=== PATIENT | male | born 1940 | race Caucasian/White ===

== ENCOUNTER → 2017-07-20 07:51 | Outpatient (CLI) | payer MEDICARE, OTHER, SELFPAY ==
[2017-07-20 10:03] LABS: Thyroid Stimulating Hormone 3.92 uIU/mL (0.47-4.68)
== END ==
PROVIDERS: PCP Family Medicine; Visit Provider Family Medicine
DX: E03.9 Hypothyroidism, unspecified (principal)
CPT/HCPCS: 36415; 84443

== ENCOUNTER 2017-11-18 11:11 | Emergency (ER) | payer MEDICARE, OTHER, SELFPAY ==
[2017-11-18 11:18] VITALS: BP 140/79; PULSE 75; RESP 15; O2SAT 97
[2017-11-18 11:20] VITALS: BP 140/79; PULSE 75; RESP 15; TEMP 36.6; O2SAT 97
--- NOTE | 2017-11-18 11:27 | DI.RAD.S_ITS ---
PROCEDURE: XR CHEST 1V INDICATIONS: diaphorisis, weakness, TECHNIQUE: One view of the chest was acquired. COMPARISON: None. FINDINGS: Surgical changes and devices: None. Lungs and pleura: No pleural effusions or pneumothorax. Lungs are clear. Mediastinum: Mediastinal contours appear normal. Heart size is normal. Bones and chest wall: No suspicious bony lesions. Overlying soft tissues appear unremarkable. IMPRESSION: No acute cardiopulmonary findings. Dictated by: Marjorie Thompson M.D. on 11/18/2017 at 12:36 Approved by: Marjorie Thompson M.D. on 11/18/2017 at 12:37
[2017-11-18 11:30] LABS: Bacteria Urine None Seen; RBC Urine None Seen (0-5/HPF); WBC Urine None Seen (0-5/HPF)
[2017-11-18 11:51] LABS: Alanine Aminotransferase 166 IU/L (21-72); Albumin 3.9 g/dL (3.5-5.0); Albumin Globulin Ratio 1.4 (1.0-2.8); Alkaline Phosphatase 120 U/L (38-126); Aspartate Aminotransferase 99 IU/L (17-59); BUN Creatinine Ratio 16.7 (6-22); Bilirubin Total 0.7 mg/dL (0.2-1.3); Blood Urea Nitrogen 15 mg/dL (9-20); Calcium 9.7 mg/dL (8.4-10.2); Carbon Dioxide 28 mmol/L (22-32); Chloride 104 mmol/L (98-107); Creatine Kinase 63 U/L (55-170); Estimated Glomerular Filt Rate > 60.0 mL/min (>60); Globulin 2.7 g/dL (1.7-4.1); Glucose 99 mg/dL (80-110); HEMOLYSIS < 15 (0-50); Lipase 84 U/L (23-300); Potassium 4.2 mmol/L (3.4-5.1); Sodium 141 mmol/L (137-145); Total Protein 6.6 g/dL (6.3-8.2)
[2017-11-18 12:08] LABS: Add Manual Diff / Slide Review NO; Basophils Percent Auto 0.8 % (0-2); Eosinophils Percent Auto 6.6 % (2-4); Hematocrit 39.6 % (41-53); Hemoglobin 13.4 g/dL (13.5-17.5); Lymphocytes Percent Auto 14.2 % (25-40); Mean Corpuscular HGB Conc 33.9 % (30-36); Mean Corpuscular Hemoglobin 31.8 PG (26-34); Mean Corpuscular Volume 93.7 fL (80-100); Monocytes Percent Auto 7.6 % (3-14); Neutrophils Absolute Auto 2900 /uL (3000-5900); Neutrophils Percent Auto 70.8 % (50-75); Platelet Count 157 X10^3/uL (150-400); Red Blood Cell Count 4.23 X10^6/uL (4.5-5.9)
[2017-11-18 12:09] LABS: Troponin I < 0.012 ng/mL (0.01-0.034)
--- NOTE | 2017-11-18 12:33 | ED.MALEGU ---
HPI - Male Genitourinary <Josephine Nolasco PA-C - Last Filed: 11/18/17 20:55> General Chief complaint: Urogenital-Male Stated complaint: Blood in Urine Time Seen by Provider: 11/18/17 11:37 Source: patient Mode of arrival: ambulatory Limitations: no limitations History of Present Illness HPI Narrative: This 77-year-old male had 2 ventral hernia repairs on Monday at [facility]. He states that he has had multiple abdominal hernia repairs in the past with complications and problems with the mesh, so scar tissue was also being revised. He did well and was released home yesterday. He states that a couple of hours ago, his was feeling poorly and he helped her out of bed and to the toilet. He states that she later slumped down to the floor from the toilet and he helped lower her to the floor. He never actually lifted her, however after that he started to notice he was urinating blood, then he felt clammy, cold and sweaty. He states that he had a catheter in for a day and a half or 2 at the hospital, but no problems, has not had any hematuria, dysuria or other urinary symptoms. He states has not had any abdominal or incisional pain at all, did not notice any pain when he was lowering his to the floor, nor since. He has not had any dyspnea, chest pain, or palpitations. No pain or swelling in the extremities. He states he has been having drainage in his surgical drains that is unchanged. He has not had fever or any other new problems since coming home yesterday. He states that he felt clammy for about an hour and he feels fine now Related Data Home Medications Medication Instructions Recorded Confirmed loratadine [Claritin] 10 mg PO BID #0 12/28/10 [TURMERIC] 1 tab PO BID #0 12/03/15 cyanocobalamin (vitamin B-12) 2,500 mcg PO BID #0 12/03/15 [Vitamin B-12] glucosamine sulfate-msm 1 tab PO BID #0 12/03/15 multivitamin [Multiple Vitamins] 1 tab PO EVERY THIRD DAY #0 12/03/15 vitamin D3-folic acid [Ciferex] 2,000 u PO BID #0 12/03/15 ascorbic acid (vitamin C) 1,000 mg PO EVERY THIRD DAY #0 06/07/16 calcium polycarbophil [FiberCon] 1 tab PO BID #0 06/07/16 guaifenesin 400 mg PO BID #0 06/07/16 peg 400-propylene glycol [Systane 1 drp OPHTH BIDP PRN #0 06/07/16 (propylene glycol)] vitamin B complex-folic acid 0.4 mg PO #0 06/07/16 [Kobee] calcium carbonate 600 mg PO #0 06/28/16 loratadine 10 mg PO BID #0 03/29/17 omega 9-jek-tuy-fish oil [Fish Oil] 1,000 mg PO QDAY #0 03/29/17 [Bozwellia] 243 mg PO PO #0 06/08/17 Previous Rx's Medication Instructions Recorded clobetasol 0 % TOPICAL BID #1 tube 09/28/16 simvastatin 40 mg PO HS #90 tab 10/24/16 sildenafil (antihypertensive) 20 mg PO SEE INSTRUCTIONS #30 tab 12/16/16 fluticasone 1 spray INTRANASAL BID #16 gm 02/15/17 hydroxyzine pamoate [Vistaril] 25 mg PO Q4HP PRN #60 cap 03/30/17 oxycodone 5 mg PO Q4HP PRN #90 tab 03/30/17 finasteride 5 mg PO QDAY #90 tab 04/20/17 omeprazole 20 mg PO HS #90 cap 05/08/17 levothyroxine [Synthroid] 50 mcg PO QAM #180 tab 06/08/17 tamsulosin [Flomax] 0.4 mg PO HS #90 cap 06/08/17 tramadol-acetaminophen [Ultracet] 1 tab PO Q6HP PRN #90 tab 06/08/17 diclofenac sodium 75 mg PO BIDP PRN #180 ect 10/23/17 Allergies Allergy/AdvReac Type Severity Reaction Status Date / Time naproxen [NAPROXEN] Allergy Mild PIMPLES Verified 11/18/17 11:22 Review of Systems <Josephine Nolasco PA-C - Last Filed: 11/18/17 20:55> Review of Systems All systems reviewed & are unremarkable except as noted in HPI and below Exam <Josephine Nolasco PA-C - Last Filed: 09/01/18 20:55> Narrative Exam Narrative: GENERAL APPEARANCE: Patient sitting comfortably, in no distress. HEENT: PERRL, EOMI, no scleral icterus, normal oropharynx NECK: Supple LUNGS: Clear to auscultation bilaterally. HEART: Rate and rhythm regular with occasional skip, normal S1 and S2, no S3 or S4. ABDOMEN: Soft, nontender, nondistended, bowel sounds present x 4 quadrants, long midline surgical incision site is clean, dry, and intact. Midpoint near the umbilicus is slightly more protuberant but soft and nontender. Bilateral LASHAE drains with serosanguineous fluid. No CVAT EXTREMITIES: No edema, no cyanosis, no calf tenderness DERMATOLOGIC: No jaundice or exanthem NEUROLOGIC: Alert and oriented with normal speech and coordination Initial Vital Signs Initial Vital Signs: Vital Signs Pulse Rate 75 11/18/17 11:18 Respiratory Rate 15 11/18/17 11:18 Blood Pressure 140/79 11/18/17 11:18 Pulse Oximetry 97 11/18/17 11:18 <Aarti Caballero DO - Last Filed: 11/21/17 07:38> Initial Vital Signs Initial Vital Signs: Vital Signs Pulse Rate 75 11/18/17 11:18 Respiratory Rate 15 11/18/17 11:18 Blood Pressure 140/79 11/18/17 11:18 Pulse Oximetry 97 11/18/17 11:18 Course <Josephine Nolasco PA-C - Last Filed: 11/18/17 20:55> Additional Information: Patient reported that he was feeling normal, well at the time I saw him. He states that he never had any incisional or hernia pain after helping his . No clear acute findings on workup today. There was a small amount of subcu air or gas noted by the radiologist, not clear whether this is new or has had since earlier in the week. We did push images to [facility] and he has a copy of films on disc. He agrees to call on Monday for follow-up and promised to return in the interim if any changes or acutely worsening symptoms Orders Ordered: Discontinued Medications Sodium Chloride (Normal Saline 0.9%) 1,000 mls @ 1,000 mls/hr IV BOLUS ONE Stop: 11/18/17 13:52 Last Infusion: 11/18/17 13:53 Dose: 0 mls/hr Admin: 11/18/17 13:03 Dose: 1,000 mls/hr Vital Signs - 8 hr 11/18/17 14:10 11/18/17 14:42 Pulse Rate 67 65 Respiratory Rate 13 16 Blood Pressure 141/97 H Blood Pressure [Left Arm] 141/97 H Pulse Oximetry 99 98 <Aarti Caballero DO - Last Filed: 11/21/17 07:38> Orders Ordered: Discontinued Medications Sodium Chloride (Normal Saline 0.9%) 1,000 mls @ 1,000 mls/hr IV BOLUS ONE Stop: 11/18/17 13:52 Last Infusion: 11/18/17 13:53 Dose: 0 mls/hr Admin: 11/18/17 13:03 Dose: 1,000 mls/hr Vital Signs - 8 hr 11/18/17 14:10 11/18/17 14:42 Pulse Rate 67 65 Respiratory Rate 13 16 Blood Pressure 141/97 H Blood Pressure [Left Arm] 141/97 H Pulse Oximetry 99 98 MDM - Male Genitourinary <Josephine Nolasco PA-C - Last Filed: 11/18/17 20:55> Lab Data Result diagrams: 11/18/17 11:25 11/18/17 11:25 Lab Results 11/18/17 11/18/17 11/18/17 Range/Units 11:15 11:25 11:25 WBC 4.0 L (4.5-11.0) X10^3/uL RBC 4.23 L (4.5-5.9) X10^6/uL Hgb 13.4 L (13.5-17.5) g/dL Hct 39.6 L (41-53) % MCV 93.7 (80-100) fL MCH 31.8 (26-34) PG MCHC 33.9 (30-36) % RDW 13.0 (11.6-14.8) % Plt Count 157 (150-400) X10^3/uL Neut % (Auto) 70.8 (50-75) % Lymph % (Auto) 14.2 L (25-40) % [place] % (Auto) 7.6 (3-14) % Eos % (Auto) 6.6 H (2-4) % Baso % (Auto) 0.8 (0-2) % Neut # (Auto) 2900 L (5251-5192) /uL Sodium 141 (137-145) mmol/L Potassium 4.2 (3.4-5.1) mmol/L Chloride 104 (98-107) mmol/L Carbon Dioxide 28 (22-32) mmol/L BUN 15 (9-20) mg/dL Creatinine 0.90 (0.66-1.25) mg/dL Estimated GFR > 60.0 (>60) mL/min BUN/Creatinine Ratio 16.7 (6-22) Glucose 99 (80-110) mg/dL Calcium 9.7 (8.4-10.2) mg/dL Total Bilirubin 0.7 (0.2-1.3) mg/dL AST 99 H (17-59) IU/L ALT 166 H (21-72) IU/L Alkaline Phosphatase 120 (38-126) U/L Total Creatine Kinase 63 (55-170) U/L Troponin I < 0.012 (0.01-0.034) ng/mL Total Protein 6.6 (6.3-8.2) g/dL Albumin 3.9 (3.5-5.0) g/dL Globulin 2.7 (1.7-4.1) g/dL Albumin/Globulin Ratio 1.4 (1.0-2.8) Lipase 84 (23-300) U/L Urine Color Cancelled Urine Appearance Cancelled Urine pH Cancelled Ur Specific [place] Cancelled Urine Protein Cancelled Urine Glucose (UA) Cancelled Urine Ketones Cancelled Urine Occult Blood Cancelled Urine Nitrate Cancelled Urine Bilirubin Cancelled Urine Urobilinogen Cancelled Ur Leukocyte Esterase Cancelled Urine RBC None seen (0-5/HPF) Urine WBC None seen (0-5/HPF) Urine Bacteria None seen (None) Ur Culture Indicated? Not Reportable Micro UA Comment Not Reportable Imaging Data CT scan - abdomen: Radiologist's impression: View Report History [address] [address] [address] Scan Report Signed Patient: Johan Mcknight MR#: [id number] : 1940 Acct:[id number] Age/Sex: 77 / M Date of Service: 11/18/17 Loc: ED Accession Number: [id number] Procedure: CT abdomen pelvis w con Ordering Provider: Josephine Nolasco P.A-C PROCEDURE: CT ABDOMEN PELVIS W CON INDICATIONS: s/p abd hernia repair, diaphoresis, hematuria TECHNIQUE: After the administration of intravenous contrast, 5 mm thick sections acquired from the diaphragm to the symphysis. 5 mm coronal and sagittal reformats were acquired. For radiation dose reduction, the following was used: automated exposure control, adjustment of mA and/or kV according to patient size. COMPARISON: [facility], , CT ABDOMEN/PELVIS WITHOUT CONTRAST, 11/29/2016, 13:30. FINDINGS: Image quality: Excellent. ABDOMEN: Lung bases: Lung bases are clear. Heart size is normal. Solid organs: Liver is normal in size and enhancement. Gallbladder is unremarkable. Biliary system is non dilated. Pancreas enhances normally. Spleen is normal in size and enhancement. No adrenal nodules. Kidneys demonstrate normal size and enhancement, without hydronephrosis. Low-density cystic lesions are present bilaterally. Peritoneum and bowel: Bowel loops demonstrate normal wall thickness and caliber. Anastomotic suture is present in the sigmoid region. No free fluid or air. Nodes and vessels: No retroperitoneal or mesenteric adenopathy by size criteria. Aorta and inferior vena cava are normal in size. Miscellaneous: Trace superficial fluid is present overlying the rectus abdominis musculature at midline. There is marked anterior abdominal wall subcutaneous fat stranding. Trace foci of subcutaneous emphysema are present as well. A small fluid and gas collection is present within the anterior subcutaneous fat at midline (series 2, image 77). No bowel containing ventral hernia is noted. PELVIS: Genitourinary: Bladder wall thickness is normal. Miscellaneous: No inguinal hernias or adenopathy. Epidural nerve stimulator is noted at T9. Bones: No suspicious bony lesions. No vertebral body compression fractures. IMPRESSION: 1. No acute intra-abdominal findings. 2. Status post recent midline hernia repair. There is a small subcutaneous fluid and gas collection. Followup to resolution is recommended. Dictated by: Marjorie Thompson M.D. on 11/18/2017 at 13:37 Approved by: Marjorie Thompson M.D. on 11/18/2017 at 13:44 Chest x-ray: Radiologist's impression: [address] [address] XRay Report Signed Patient: Johan Mcknight MR#: [id number] : 1940 Acct:[id number] Age/Sex: 77 / M Date of Service: 11/18/17 Loc: ED Accession Number: [id number] Procedure: XR chest 1V Ordering Provider: Aarti Caballero D.O. PROCEDURE: XR CHEST 1V INDICATIONS: diaphorisis, weakness, TECHNIQUE: One view of the chest was acquired. COMPARISON: None. FINDINGS: Surgical changes and devices: None. Lungs and pleura: No pleural effusions or pneumothorax. Lungs are clear. Mediastinum: Mediastinal contours appear normal. Heart size is normal. Bones and chest wall: No suspicious bony lesions. Overlying soft tissues appear unremarkable. IMPRESSION: No acute cardiopulmonary findings. Dictated by: Marjorie Thompson M.D. on 11/18/2017 at 12:36 Approved by: Mrajorie Thompson M.D. on 11/18/2017 at 12:37 ECG Data Attestation: I personally reviewed and interpreted this ECG as follows: <Aarti Caballero DO - Last Filed: 11/21/17 07:38> Lab Data Lab Results 11/18/17 11/18/17 11/18/17 Range/Units 11:15 11:25 11:25 WBC 4.0 L (4.5-11.0) X10^3/uL RBC 4.23 L (4.5-5.9) X10^6/uL Hgb 13.4 L (13.5-17.5) g/dL Hct 39.6 L (41-53) % MCV 93.7 (80-100) fL MCH 31.8 (26-34) PG MCHC 33.9 (30-36) % RDW 13.0 (11.6-14.8) % Plt Count 157 (150-400) X10^3/uL Neut % (Auto) 70.8 (50-75) % Lymph % (Auto) 14.2 L (25-40) % [place] % (Auto) 7.6 (3-14) % Eos % (Auto) 6.6 H (2-4) % Baso % (Auto) 0.8 (0-2) % Neut # (Auto) 2900 L (5491-9362) /uL Sodium 141 (137-145) mmol/L Potassium 4.2 (3.4-5.1) mmol/L Chloride 104 (98-107) mmol/L Carbon Dioxide 28 (22-32) mmol/L BUN 15 (9-20) mg/dL Creatinine 0.90 (0.66-1.25) mg/dL Estimated GFR > 60.0 (>60) mL/min BUN/Creatinine Ratio 16.7 (6-22) Glucose 99 (80-110) mg/dL Calcium 9.7 (8.4-10.2) mg/dL Total Bilirubin 0.7 (0.2-1.3) mg/dL AST 99 H (17-59) IU/L ALT 166 H (21-72) IU/L Alkaline Phosphatase 120 (38-126) U/L Total Creatine Kinase 63 (55-170) U/L Troponin I < 0.012 (0.01-0.034) ng/mL Total Protein 6.6 (6.3-8.2) g/dL Albumin 3.9 (3.5-5.0) g/dL Globulin 2.7 (1.7-4.1) g/dL Albumin/Globulin Ratio 1.4 (1.0-2.8) Lipase 84 (23-300) U/L Urine Color Cancelled Urine Appearance Cancelled Urine pH Cancelled Ur Specific [place] Cancelled Urine Protein Cancelled Urine Glucose (UA) Cancelled Urine Ketones Cancelled Urine Occult Blood Cancelled Urine Nitrate Cancelled Urine Bilirubin Cancelled Urine Urobilinogen Cancelled Ur Leukocyte Esterase Cancelled Urine RBC None seen (0-5/HPF) Urine WBC None seen (0-5/HPF) Urine Bacteria None seen (None) Ur Culture Indicated? Not Reportable Micro UA Comment Not Reportable Discharge Plan Departure Patient Disposition: Home Clinical Impression: Status post hernia repair, Urine discoloration, Weakness Discharge Date/Time: 11/18/17 14:44 Interventions: ED Discharge Assessment Last Done: 11/18/17 14:42 Instructions: How to Care for a Surgical Wound Activity Restrictions/Additional Instructions: You should return as we talked about if you have any acutely worsening symptoms, or new symptoms such as fever or problems with your surgical wound. Also, there was a small amount air/gas localized under the skin on your CT scan, so this will need follow up by your surgeon to make sure it has resolved. We have sent the images to [facility], and you should call 1st thing on Monday for follow-up and also takes the disc that we gave you with you. The source of your weakness and sweating was not clear today. I suspect that the discoloration of your urine is mainly due to taking the [id number] urinary pain reliever, which can turn the urine an orange color. There were no red cells in the urine on microscopic exam Prescriptions: No Action loratadine [Claritin] 10 MG tablet 10 mg PO BID Qty: 0 RF: 0 [TURMERIC] 1 tab PO BID Qty: 0 RF: 0 cyanocobalamin (vitamin B-12) [Vitamin B-12] 50 MCG tablet 2,500 mcg PO BID Qty: 0 RF: 0 glucosamine sulfate-msm 1 EACH capsule 1 tab PO BID Qty: 0 RF: 0 multivitamin [Multiple Vitamins] 1 EACH tablet 1 tab PO EVERY THIRD DAY Qty: 0 RF: 0 vitamin D3-folic acid [Ciferex] 3,775 UNITS/1 MG capsule 2,000 u PO BID Qty: 0 RF: 0 guaifenesin 400 MG tablet 400 mg PO BID Qty: 0 RF: 0 ascorbic acid (vitamin C) 500 MG tablet 1,000 mg PO EVERY THIRD DAY Qty: 0 RF: 0 vitamin B complex-folic acid [Kobee] 0.4 MG tablet 0.4 mg PO Qty: 0 RF: 0 calcium polycarbophil [FiberCon] 625 MG tablet 1 tab PO BID Qty: 0 RF: 0 peg 400-propylene glycol [Systane (propylene glycol)] 15 ML drops 1 drp OPHTH BIDP PRNQty: 0 RF: 0 calcium carbonate 600 MG tablet 600 mg PO Qty: 0 RF: 0 clobetasol 0.05 % ointment Topical BID Qty: 1 RF: 5 simvastatin 40 MG tablet 40 mg PO HS Qty: 90 RF: 3 sildenafil (antihypertensive) 20 MG tablet 20 mg PO SEE INSTRUCTIONS Qty: 30 RF: 3 fluticasone 16 GM spray,suspension 1 spray Intranasal BID Qty: 16 RF: 3 loratadine 10 MG tablet 10 mg PO BID Qty: 0 RF: 0 omega 1-nlj-jvz-fish oil [Fish Oil] 1,000 MG capsule 1,000 mg PO QDAY Qty: 0 RF: 0 oxycodone 5 MG tablet 5 mg PO Q4HP PRNQty: 90 RF: 0 hydroxyzine pamoate [Vistaril] 25 MG capsule 25 mg PO Q4HP PRNQty: 60 RF: 1 finasteride 5 MG tablet 5 mg PO QDAY Qty: 90 RF: 5 omeprazole 20 MG capsule,delayed release(DR/EC) 20 mg PO HS Qty: 90 RF: 1 [Bozwellia] 243 mg PO PO Qty: 0 RF: 0 tramadol-acetaminophen [Ultracet] 37.5 MG/325 MG tablet 1 tab PO Q6HP PRNQty: 90 RF: 0 tamsulosin [Flomax] 0.4 MG capsule,extended release 24hr 0.4 mg PO HS Qty: 90 RF: 5 levothyroxine [Synthroid] 50 MCG tablet 50 mcg PO QAM Qty: 180 RF: 5 diclofenac sodium 75 mg tablet,delayed release (DR/EC) 75 mg PO BIDP PRNQty: 180 RF: 1 Referrals: Jarred Lamb [Other] Pasha Guzman MD [Primary Care Provider] - <Aarti Caballero DO - Last Filed: 11/21/17 07:38> Cosign ED Attending Alexature Attestation: I was immediately available in the department for consultation. Documentation has been reviewed. I agree with assessment and plan.
--- NOTE | 2017-11-18 12:53 | DI.CT.S_ITS ---
PROCEDURE: CT ABDOMEN PELVIS W CON INDICATIONS: s/p abd hernia repair, diaphoresis, hematuria TECHNIQUE: After the administration of intravenous contrast, 5 mm thick sections acquired from the diaphragm to the symphysis. 5 mm coronal and sagittal reformats were acquired. For radiation dose reduction, the following was used: automated exposure control, adjustment of mA and/or kV according to patient size. COMPARISON: [facility], , CT ABDOMEN/PELVIS WITHOUT CONTRAST, 11/29/2016, 13:30. FINDINGS: Image quality: Excellent. ABDOMEN: Lung bases: Lung bases are clear. Heart size is normal. Solid organs: Liver is normal in size and enhancement. Gallbladder is unremarkable. Biliary system is non dilated. Pancreas enhances normally. Spleen is normal in size and enhancement. No adrenal nodules. Kidneys demonstrate normal size and enhancement, without hydronephrosis. Low-density cystic lesions are present bilaterally. Peritoneum and bowel: Bowel loops demonstrate normal wall thickness and caliber. Anastomotic suture is present in the sigmoid region. No free fluid or air. Nodes and vessels: No retroperitoneal or mesenteric adenopathy by size criteria. Aorta and inferior vena cava are normal in size. Miscellaneous: Trace superficial fluid is present overlying the rectus abdominis musculature at midline. There is marked anterior abdominal wall subcutaneous fat stranding. Trace foci of subcutaneous emphysema are present as well. A small fluid and gas collection is present within the anterior subcutaneous fat at midline (series 2, image 77). No bowel containing ventral hernia is noted. PELVIS: Genitourinary: Bladder wall thickness is normal. Miscellaneous: No inguinal hernias or adenopathy. Epidural nerve stimulator is noted at T9. Bones: No suspicious bony lesions. No vertebral body compression fractures. IMPRESSION: 1. No acute intra-abdominal findings. 2. Status post recent midline hernia repair. There is a small subcutaneous fluid and gas collection. Followup to resolution is recommended. Dictated by: Marjorie Thompson M.D. on 11/18/2017 at 13:37 Approved by: Marjorie Thompson M.D. on 11/18/2017 at 13:44
[2017-11-18] MEDS: SODIUM CHLORIDE 0.9% 1,000 ML 1000 ML IV (13:03)
[2017-11-18 14:10] VITALS: BP 141/97; PULSE 67; RESP 13; O2SAT 99
[2017-11-18 14:42] VITALS: BP 141/97; PULSE 65; RESP 16; O2SAT 98
== END 2017-11-18 14:44 | disposition home or self-care (01) ==
PROVIDERS: Emergency Medicine; Emergency Provider Internal Medicine; PCP Family Medicine
DX: R39.89 Other symptoms and signs involving the genitourinary system (principal); Z98.890 Other specified postprocedural states; Z87.19 Personal history of other diseases of the digestive system; R53.1 Weakness
CPT/HCPCS: 36591; 71045; 74177; 80053; 81015; 82550; 82553; 83690; 84484; 85025; 93005; 93010; 96360; 99283; 99285; Q9967

== ENCOUNTER → 2018-03-14 14:02 | Outpatient (CLI) | payer MEDICARE, OTHER, SELFPAY ==
--- NOTE | 2018-03-14 | DI.CT.S_ITS ---
PROCEDURE: CT LUMBAR SPINE WO CON INDICATIONS: Postlaminectomy syndrome, low back pain TECHNIQUE: Noncontrast 3 mm thick sections acquired from the T12 level to the sacrum. Sagittal and coronal reformats were constructed. For radiation dose reduction, the following was used: automated exposure control. COMPARISON: [facility], CT, L-SPINE WITHOUT CONTRAST, 11/16/2015, 8:49. [facility], , CT LUMBAR SPINE, 11/29/2016, 13:30. [facility], MR, L-SPINE W&WO CONTRAST, 02/03/2016, 7:45. [facility], CR, SPINE LUMB 2 OR 3VW, 11/11/2015, 10:47. FINDINGS: Image quality: Excellent. Bones: Postsurgical changes compatible with L3-L5 posterior fusion, L3-L5 interbody fusion and L4 left facetectomy, as well as L3-L4 and L4-L5 left hemilaminectomies are stable compared to prior examinations. Orthopedic hardware is intact. Lucency adjacent to the bilateral L5 transpedicular screws is stable compared to prior examinations. There is mild L3-L4 and L4-L5 retrolisthesis which is stable compared to prior examinations. No acute vertebral body compression fractures. No suspicious lytic or blastic bony lesions. No pars defects. T12-L1: Disc height is normal. No central stenosis. No neural foraminal narrowing. No definite neural impingement. L1-L2: Disc height is normal. Vacuum disc phenomenon noted. Mild diffuse disc bulge. Mild ligamentum flavum hypertrophy. Mild narrowing of the central canal. Mild bilateral neural foraminal narrowing. No definite neural impingement. L2-L3: Loss of disc height. Vacuum disc phenomenon. Endplate osteophytosis. Mild, diffuse disc bulge. Mild bilateral facet hypertrophy. Mild ligamentum flavum hypertrophy. Moderate narrowing of the central canal. Mild to moderate right and mild left neural foraminal narrowing. No definite neural impingement. L3-L4: Status post fusion. Endplate osteophytosis. Moderate right facet hypertrophy. No central stenosis. Moderate to severe right neural foraminal narrowing with slight flattened deformity exiting right L3 nerve root. Mild narrowing of the left neural foramen without definite impingement of the exiting left L3 nerve root. L4-L5: Status post fusion. Vacuum disc phenomenon is noted with lucency noted adjacent to the intervertebral disc spacer compatible with incomplete incorporation. Moderate right facet hypertrophy. Left L4 facetectomy and left L5 superior facetectomy changes noted. Mild narrowing of the central canal. Moderate to severe right and severe left neural foraminal narrowing with slight flattened deformity exiting right L4 nerve root in mild flattened deformity exiting left L4 nerve root. L5-S1: Disc height is normal. Minimal, diffuse disc bulge. Moderate right and mild left facet hypertrophy. No central stenosis. Mild bilateral neural foraminal narrowing. No definite. Soft tissues: No retroperitoneal masses or hematomas. 2 mm nonobstructing right renal stone is stable compared to prior examinations. 1 mm nonobstructing left renal stone is stable compared to prior examinations. Left renal cyst is stable compared to prior examinations. Visualized aorta is normal in caliber. Scattered atherosclerotic calcifications noted in the abdominal aorta and the visualized pelvic vasculature. vasculature. IMPRESSION: 1. Stable postsurgical changes. 2. Lucencies adjacent to the bilateral L5 transpedicular screws are stable compared to prior examinations and likely related to hardware loosening. 3. Multilevel degenerative disc disease. 4. Multilevel facet arthropathy. 5. Grade 1 of L3-L4 and L4-L5 degenerative retrolisthesis stable compared to prior exams. 6. Moderate L2-L3 central canal narrowing. Mild L1-L2 and L4-L5 central canal narrowing. 7. Moderate to severe right and severe left L4-L5 neural foraminal narrowing. Moderate to severe right L3-L4 neural foraminal narrowing. Mild to moderate right and mild left L2-L3 neural foraminal narrowing. Mild bilateral L1-L2 and L5-S1 neural foraminal narrowing. 8. Flattened deformity of the exiting right L3 nerve root and the exiting bilateral L4 nerve roots secondary to neural foraminal narrowing. Please correlate with clinical data. Dictated by: Britt Patterson MD, PhD on 03/14/2018 at 14:21 Approved by: Britt Patterson MD, PhD on 03/14/2018 at 14:53
== END ==
PROVIDERS: PCP Family Medicine; Visit Provider Neurological Surgery
DX: M96.1 Postlaminectomy syndrome, not elsewhere classified (principal)
CPT/HCPCS: 72131

== ENCOUNTER → 2018-04-07 07:29 | Outpatient (CLI) | payer MEDICARE, OTHER, SELFPAY ==
[2018-04-07 07:49] LABS: Add Manual Diff / Slide Review NO; Basophils Absolute Auto 0 /uL (0-100); Eosinophils Absolute Auto 200 /uL (0-450); Eosinophils Percent Auto 6.5 % (2-4); Hematocrit 42.2 % (41-53); Hemoglobin 13.9 g/dL (13.5-17.5); Lymphocytes Absolute Auto 1000 /uL (1100-4500); Lymphocytes Percent Auto 27.4 % (25-40); Mean Corpuscular HGB Conc 32.9 % (30-36); Mean Corpuscular Hemoglobin 31.6 PG (26-34); Mean Corpuscular Volume 96.1 fL (80-100); Monocytes Absolute Auto 300 /uL (0-900); Monocytes Percent Auto 7.1 % (3-14); Neutrophils Absolute Auto 2200 /uL (1500-7000); Platelet Count 148 X10^3/uL (150-400); Red Blood Cell Count 4.39 X10^6/uL (4.5-5.9); Red Cell Distribution Width 13.6 % (11.6-14.8); White Blood Cell Count 3.8 X10^3/uL (4.5-11.0)
[2018-04-07 07:58] LABS: HEMOLYSIS < 15 (0-50)
[2018-04-07 08:05] LABS: Alanine Aminotransferase 42 IU/L (21-72); Albumin 4.5 g/dL (3.5-5.0); Albumin Globulin Ratio 1.7 (1.0-2.8); Alkaline Phosphatase 48 U/L (38-126); Aspartate Aminotransferase 37 IU/L (17-59); Bilirubin Total 0.6 mg/dL (0.2-1.3); Blood Urea Nitrogen 18 mg/dL (9-20); Calcium 9.6 mg/dL (8.4-10.2); Carbon Dioxide 30 mmol/L (22-32); Chloride 102 mmol/L (98-107); Cholesterol 175 mg/dL (140-199); Creatinine Urine Random 108.2 mg/dL; Estimated Glomerular Filt Rate > 60.0 mL/min (>60); Globulin 2.6 g/dL (1.7-4.1); Glucose 89 mg/dL (80-110); HDL Cholesterol 68 mg/dL (40-60); LDL Cholesterol Calculated 96 mg/dL (<100); Potassium 4.4 mmol/L (3.4-5.1); Sodium 140 mmol/L (137-145); Total Protein 7.1 g/dL (6.3-8.2); Triglycerides 55 mg/dL (35-150)
[2018-04-07 08:23] LABS: Microalbumi Creatinin Ratio Ur 5.5 ug/mg CR (<30); Microalbumin Urine Random < 0.6 mg/dL (0-1.6)
[2018-04-07 09:01] LABS: Thyroid Stimulating Hormone 3.83 uIU/mL (0.47-4.68)
[2018-04-07 11:45] LABS: Prostate Specific Antigen Scrn 0.434 ng/mL (0.1-4.0)
== END ==
PROVIDERS: PCP Family Medicine; Visit Provider Family Medicine
DX: E78.2 Mixed hyperlipidemia (principal); R89.9 Unspecified abnormal finding in specimens from other organs, systems and tissues; D64.9 Anemia, unspecified; Z12.5 Encounter for screening for malignant neoplasm of prostate; I10 Essential (primary) hypertension; E78.5 Hyperlipidemia, unspecified; E03.9 Hypothyroidism, unspecified
CPT/HCPCS: 36415; 80053; 80061; 82043; 82570; 84443; 85025; G0103

== ENCOUNTER → 2018-08-30 08:23 | Outpatient (CLI) | payer MEDICARE, OTHER, SELFPAY ==
[2018-08-30 09:10] LABS: Add Manual Diff / Slide Review NO; Basophils Absolute Auto 0 /uL (0-100); Basophils Percent Auto 0.6 % (0-2); Eosinophils Absolute Auto 100 /uL (0-450); Eosinophils Percent Auto 2.7 % (2-4); Hematocrit 40.3 % (41-53); Hemoglobin 13.7 g/dL (13.5-17.5); Lymphocytes Absolute Auto 1100 /uL (1100-4500); Lymphocytes Percent Auto 27.9 % (25-40); Mean Corpuscular HGB Conc 33.9 % (30-36); Mean Corpuscular Hemoglobin 32.5 PG (26-34); Mean Corpuscular Volume 95.8 fL (80-100); Monocytes Absolute Auto 300 /uL (0-900); Monocytes Percent Auto 7.6 % (3-14); Neutrophils Absolute Auto 2300 /uL (1500-7000); Neutrophils Percent Auto 61.2 % (50-75); Platelet Count 176 X10^3/uL (150-400); Red Blood Cell Count 4.21 X10^6/uL (4.5-5.9); Red Cell Distribution Width 13.7 % (11.6-14.8); White Blood Cell Count 3.8 X10^3/uL (4.5-11.0)
[2018-08-30 09:32] LABS: BUN Creatinine Ratio 21.1 (6-22); Blood Urea Nitrogen 19 mg/dL (9-20); Calcium 9.8 mg/dL (8.4-10.2); Carbon Dioxide 32 mmol/L (22-32); Chloride 100 mmol/L (98-107); Estimated Glomerular Filt Rate > 60.0 mL/min (>60); Glucose 85 mg/dL (80-110); HEMOLYSIS < 15 (0-50); Potassium 4.3 mmol/L (3.4-5.1); Sodium 138 mmol/L (137-145)
[2018-08-30 11:52] LABS: Vitamin B12 > 1000 pg/mL (239-931)
== END ==
PROVIDERS: PCP Family Medicine; Visit Provider Family Medicine
DX: Z01.818 Encounter for other preprocedural examination (principal); Z13.21 Encounter for screening for nutritional disorder; Z79.899 Other long term (current) drug therapy
CPT/HCPCS: 36415; 80048; 82607; 83735; 85025

== ENCOUNTER → 2018-09-03 14:41 | Outpatient (CLI) | payer MEDICARE, OTHER, SELFPAY | PROVIDERS: PCP Family Medicine; Visit Provider Family Medicine | DX: Z01.812 Encounter for preprocedural laboratory examination (principal); M54.5 Low back pain | CPT/HCPCS: 87797 ==

== ENCOUNTER → 2018-09-03 15:21 | Outpatient (CLI) | payer MEDICARE, OTHER, SELFPAY ==
[2018-09-03 15:30] LABS: Bacteria Urine None Seen; WBC Urine None Seen (0-5/HPF)
[2018-09-03 16:17] LABS: Appearance Urine UA CLEAR; Bilirubin Urine UA NEGATIVE (NEGATIVE); Color Urine UA YELLOW; Glucose Urine UA NEGATIVE (Negative); Ketones Urine UA NEGATIVE (NEGATIVE); Leukocyte Esterase Urine UA NEGATIVE (NEGATIVE); Nitrite Urine UA NEGATIVE (Negative); Occult Blood Urine UA NEGATIVE (Negative); Protein Urine UA NEGATIVE (Negative); Urobilinogen Urine UA 0.2 E.U./dL (0.2)
[2018-09-03 16:25] LABS: Culture Indicated Urine Cult Not Indicated; RBC Urine 0-1/HPF (0-5/HPF)
[2018-09-03 16:43] LABS: Prothrombin Time 11.3 SECONDS (10.1-12.7)
[2018-09-03 16:46] LABS: PTT Partial Thromboplastin Tim 31 SECONDS (26.4-36.2)
== END ==
PROVIDERS: PCP Family Medicine; Visit Provider Family Medicine
DX: M54.5 Low back pain (principal); Z01.812 Encounter for preprocedural laboratory examination; R79.1 Abnormal coagulation profile; M54.9 Dorsalgia, unspecified
CPT/HCPCS: 36415; 81001; 85610; 85730; 87086; 87797

== ENCOUNTER → 2018-09-14 13:37 | Outpatient (CLI) | payer MEDICARE, OTHER, SELFPAY ==
--- NOTE | 2018-09-14 | DI.CT.S_ITS ---
PROCEDURE: CT LUMBAR SPINE WO CON INDICATIONS: Scoliosis, unspecified TECHNIQUE: Noncontrast 3 mm thick sections acquired from the T12 level to the sacrum. Sagittal and coronal reformats were constructed. For radiation dose reduction, the following was used: automated exposure control. COMPARISON: [facility] [place], CR, XR LUMBAR SPINE WITH OLBIQUES PLUS FLEXION EXTENSION, 08/07/2018, 9:46. [facility], CT, CT LUMBAR SPINE WO CON, 03/14/2018, 14:02. [facility], CT, L-SPINE WITHOUT CONTRAST, 11/16/2015, 8:49. FINDINGS: Image quality: Excellent. Bones: There is mildly kyphotic bony alignment centered at L2, stable. No acute vertebral body compression fractures. No suspicious lytic or blastic bony lesions. There has been no interval worsening of the lucency along the transverse pedicle screws at L5, in this patient who has undergone L3-L5 transverse pedicle screw placement and vertical fixation rods posteriorly with interbody disc prosthesis at L34 and L4-5. Central spinal caliber is of mildly reduced overall caliber, stable over time. No pars defects. T12-L1: Normal except for slight disc height reduction. L1-L2: Mild degenerative disc disease, mild disc height reduction. There is a slight posterior disc bulge, moderate bilateral facet osteoarthritis and mild concentric spinal and foraminal stenosis. L2-L3: Moderate degenerative disc disease and disc height reduction, facet osteoarthritis is moderate. Ligamentum flavum hypertrophy is mild. There is concentric moderate spinal and foraminal stenosis. This is stable over time. L3-L4: Moderate degenerative disc disease, slight retrolisthesis of L3 on L4. Facet osteoarthritis is moderate, and greater on the right than the left with secondary mild to moderate right foraminal stenosis and potential for impingement on the right L3 nerve root. L4-L5: Moderately severe degenerative disc disease, slight grade 1 retrolisthesis of L4 on L5. Facet hyperostosis is again seen to be greater on the right than the left leading to moderately severe right and mild to moderate left foraminal stenosis. Left laminotomy again noted. L5-S1: Mild to moderate degenerative disc disease, facet osteoarthritis is moderately severe and greater on the left than the right with moderately severe left foraminal stenosis and mild to moderate right foraminal stenosis, equivalent to that previously present. Soft tissues: No retroperitoneal masses or hematomas. Visualized aorta is normal in caliber. IMPRESSION: 1. Postsurgical changes are stable over time from the most recent comparison study from 03/14/18 with both degenerative disc disease and facet osteoarthritis leading to both symmetric and asymmetric foraminal stenosis as discussed in detail by level in the body of the report above. 2. There is no identified disc herniation found. Minimal subluxation is present with retrolisthesis of L3 on L4 and L4 and L5 stable over time from chronic ligamentous laxity. 3. The postsurgical changes from L3-L5 include lucencies along the transverse pedicle screws bilaterally at L5, but this has not worsened it is not associated with evidence of subluxation. This presumably indicates some degree of mobility along the lower lumbosacral spine between L4-5. Dictated by: Ramin Alejandre M.D. on 09/14/2018 at 15:52 Approved by: Ramin Alejandre M.D. on 09/14/2018 at 16:09
--- NOTE | 2018-09-14 13:51 | DI.CT.S_ITS ---
PROCEDURE: CT THORACIC SPINE WO CON INDICATIONS: Scoliosis, unspecified TECHNIQUE: Noncontrast 3 mm thick sections acquired through the region of interest in the thoracic spine. Sagittal and coronal reformats were then constructed. For radiation dose reduction, the following was used: automated exposure control. COMPARISON: [facility], CT, CT LUMBAR SPINE WO CON, 09/14/2018, 13:41. FINDINGS: Image quality: Excellent. Bones: There is normal overall bony alignment except for a slight degree of convex rightward scoliosis centered at the middle third of the thoracic spine. No acute vertebral body compression fractures. No suspicious sclerotic or lytic bony lesions. Central spinal canal is of normal overall caliber. Note is made of a spinal stimulator electrode lead and plate at the dorsal margin of the epidural space T7-T8 axial level. Soft tissues: No paravertebral masses or hematomas. Visualized posteromedial lungs appear clear. IMPRESSION: Mild degenerative disc disease, mild facet osteoarthritis along the thoracic spine. Note is made of a dorsal spinal electrode lead and plate in normal position at the T7-T8 axial level. At the low cervical spine best seen at C5-6 and especially C6-7 is moderate to moderately severe degenerative disc disease. No compression fracture seen. Dictated by: Ramin Alejandre M.D. on 09/14/2018 at 14:09 Approved by: Ramin Alejandre M.D. on 09/14/2018 at 14:50
== END ==
PROVIDERS: PCP Family Medicine; Visit Provider Student in an Organized Health Care Education/Training Program
DX: M41.9 Scoliosis, unspecified (principal); M51.34 Other intervertebral disc degeneration, thoracic region; M50.322 Other cervical disc degeneration at C5-C6 level; M50.323 Other cervical disc degeneration at C6-C7 level; M47.814 Spondylosis without myelopathy or radiculopathy, thoracic region; M51.36 Other intervertebral disc degeneration, lumbar region; M51.37 Other intervertebral disc degeneration, lumbosacral region; M48.061 Spinal stenosis, lumbar region without neurogenic claudication; M48.07 Spinal stenosis, lumbosacral region; Z98.1 Arthrodesis status
CPT/HCPCS: 72128; 72131

== ENCOUNTER → 2019-02-28 12:25 | Outpatient (CLI) | payer MEDICARE, OTHER, SELFPAY ==
[2019-02-28 12:49] LABS: Add Manual Diff / Slide Review NO; Basophils Absolute Auto 0 /uL (0-100); Basophils Percent Auto 0.9 % (0-2); Eosinophils Absolute Auto 300 /uL (0-450); Eosinophils Percent Auto 5.3 % (2-4); Hematocrit 40.1 % (41-53); Hemoglobin 13.7 g/dL (13.5-17.5); Lymphocytes Absolute Auto 1200 /uL (1100-4500); Lymphocytes Percent Auto 23.3 % (25-40); Mean Corpuscular HGB Conc 34.1 % (30-36); Mean Corpuscular Hemoglobin 30.1 PG (26-34); Mean Corpuscular Volume 88.1 fL (80-100); Monocytes Absolute Auto 300 /uL (0-900); Monocytes Percent Auto 6.4 % (3-14); Neutrophils Absolute Auto 3300 /uL (1500-7000); Neutrophils Percent Auto 64.1 % (50-75); Platelet Count 158 X10^3/uL (150-400); Red Blood Cell Count 4.56 X10^6/uL (4.5-5.9); Red Cell Distribution Width 15.5 % (11.6-14.8); White Blood Cell Count 5.1 X10^3/uL (4.5-11.0)
[2019-02-28 13:29] LABS: Alanine Aminotransferase 31 IU/L (<50); Albumin 4.4 g/dL (3.5-5.0); Albumin Globulin Ratio 1.9 (1.0-2.8); Alkaline Phosphatase 101 U/L (38-126); Aspartate Aminotransferase 36 IU/L (17-59); BUN Creatinine Ratio 26.3 (6-22); Bilirubin Total 0.8 mg/dL (0.2-1.3); Blood Urea Nitrogen 21 mg/dL (9-20); Calcium 9.7 mg/dL (8.4-10.2); Carbon Dioxide 28 mmol/L (22-32); Chloride 101 mmol/L (98-107); Estimated Glomerular Filt Rate > 60.0 mL/min (>60); Globulin 2.3 g/dL (1.7-4.1); Glucose 88 mg/dL (80-110); HEMOLYSIS < 15 (0-50); Potassium 4.8 mmol/L (3.4-5.1); Sodium 138 mmol/L (137-145); Total Protein 6.7 g/dL (6.3-8.2)
== END ==
PROVIDERS: PCP Family Medicine; Visit Provider Family Medicine
DX: R60.9 Edema, unspecified (principal)
CPT/HCPCS: 36415; 80053; 85025

== ENCOUNTER → 2019-04-04 09:37 | Outpatient (CLI) | payer MEDICARE, OTHER, SELFPAY ==
--- NOTE | 2019-04-04 | DI.CT.S_ITS ---
PROCEDURE: CT THORACIC SPINE WO CON INDICATIONS: check hardware fusion, back pain TECHNIQUE: Noncontrast 3 mm thick sections acquired through the region of interest in the thoracic spine. Sagittal and coronal reformats were then constructed. For radiation dose reduction, the following was used: automated exposure control. COMPARISON: [facility], CT, CT LUMBAR SPINE WO CON, 04/04/2019, 9:41. [facility], CT, CT LUMBAR SPINE WO CON, 09/14/2018, 13:41. [facility], CT, CT THORACIC SPINE WO CON, 09/14/2018, 13:41. FINDINGS: Image quality: There is streak artifact associated with the metallic hardware. Bones: There is normal overall bony alignment. No acute vertebral body compression fractures. Mild superior compression deformities can be seen at T11 and T12. No suspicious sclerotic or lytic bony lesions. Central spinal canal is of normal overall caliber. Extensive postoperative hardware is seen, with Leiva matteo seen at the T4 level. Numerous pedicle screws are seen. The hardware continues through the sacrum. There is lucency seen adjacent to the screws on both sides at the T5 and T6 levels. The screws at several levels are superiorly located. The screw on the right at the T6-T7 level is seen within the disc space. A spinal stimulator is seen, with the leads at the T7-T8 level. Degenerative changes are seen throughout, including the visualized lower cervical spine. Soft tissues: No paravertebral masses or hematomas. Visualized posteromedial lungs appear clear. Coronary artery calcifications are seen. There is a 2 mm nonobstructing stone seen within the right kidney, as on series 3 image 107. There is a simple appearing water density left renal cyst that measures up to 2.7 cm. IMPRESSION: Extensive postoperative hardware is seen. Lucency is seen adjacent to the T5 and T6 screws, which is consistent with loosening. A spinal stimulator is seen. Mild T11 and T12 superior endplate compression deformities. Cervical spine degenerative changes are seen, including involving the visualized cervical spine. Dictated by: Ru Suarez M.D. on 04/04/2019 at 10:45 Approved by: Ru Suarez M.D. on 04/04/2019 at 10:52
--- NOTE | 2019-04-04 | DI.CT.S_ITS ---
PROCEDURE: CT LUMBAR SPINE WO CON INDICATIONS: check hardware fusion, back pain TECHNIQUE: Noncontrast 3 mm thick sections acquired from the T12 level to the sacrum. Sagittal and coronal reformats were constructed. For radiation dose reduction, the following was used: automated exposure control. COMPARISON: [facility], MR, L-SPINE W&WO CONTRAST, 02/03/2016, 7:45. [facility], CT, CT THORACIC SPINE WO CON, 09/14/2018, 13:41. [facility], CT, CT THORACIC SPINE WO CON, 04/04/2019, 9:41. [facility], CT, CT LUMBAR SPINE WO CON, 09/14/2018, 13:41. FINDINGS: Image quality: Excellent. Bones: There are extensive surgical changes as spinal fusion from T3 to S1. There is grade 1 and retrolisthesis of L3 on L4. No acute vertebral body compression fractures. There is discectomy and disc prosthesis at L3-L4 and L4-L5. The right L5 pedicular screw appears to deviate laterally from the previous tract and traverse through the anterior cortex concerning for loosening. There is lucency along the left pedicular screw of L5, concerning for loosening. There is also subtle lucency in the anterior aspect of the left L4 pedicular screw in the anterior aspect of the right L3 pedicular screw. S1 pedicle screw also traverses through the anterior cortex. There are 2 screws traversing the right iliac bone and a single screw traversing the left iliac bone. The more inferior screw on the right side appears to be through the lateral cortex of the right right iliac bone. There is lucency around upper thoracic screws of T5, T6, and T8. The right T7 pedicle screw traverses the superior endplate of T7 and appears within the intervertebral disc space. Soft tissues: No retroperitoneal masses or hematomas. Visualized aorta is normal in caliber. IMPRESSION: 1. Extensive postsurgical changes in thoracic and lumbar spine with fusion from T3 to S1. 2. The right L5 pedicular screw appears to deviate laterally from the previous tract and traverse through the anterior cortex, concerning for loosening. 3. Lucency along the left pedicular screw of L5, concerning for loosening. 4. Subtle lucency in the anterior aspect of the left L4 pedicular screw in the anterior aspect of the right L3 pedicular screw, which would represent early loosening. 5. Lucencies around upper thoracic screws of T5, T6, T8, concerning for hardware failure. The right T7 pedicle screw traverses suited superior endplate of T7 within the intervertebral disc space. Please see the separate CT thoracic spine report. Dictated by: Jyoti Lou M.D. on 04/04/2019 at 11:13 Approved by: Jyoti Lou M.D. on 04/04/2019 at 12:03
== END ==
PROVIDERS: PCP Family Medicine; Visit Provider Psychiatry & Neurology Neurology
DX: M54.6 Pain in thoracic spine (principal); M54.5 Low back pain; I25.10 Atherosclerotic heart disease of native coronary artery without angina pectoris; N20.0 Calculus of kidney; N28.1 Cyst of kidney, acquired; Z98.1 Arthrodesis status; Z96.82 Presence of neurostimulator
CPT/HCPCS: 72128; 72131

== ENCOUNTER → 2019-07-19 07:48 | Outpatient (CLI) | payer MEDICARE, OTHER, SELFPAY ==
[2019-07-19 08:45] LABS: Cholesterol 162 mg/dL (140-199); HDL Cholesterol 41 mg/dL (40-60); LDL Cholesterol Calculated 96 mg/dL (<100); Triglycerides 123 mg/dL (35-150)
[2019-07-19 09:27] LABS: TSH w/ Reflex to FT4 3.38 uIU/mL (0.47-4.68)
== END ==
PROVIDERS: PCP Family Medicine; Referring Provider Family Medicine; Visit Provider Family Medicine
DX: Z12.5 Encounter for screening for malignant neoplasm of prostate (principal); E05.90 Thyrotoxicosis, unspecified without thyrotoxic crisis or storm; E78.2 Mixed hyperlipidemia
CPT/HCPCS: 36415; 80061; 84443; G0103

== ENCOUNTER → 2019-08-13 11:24 | Outpatient (CLI) | payer MEDICARE, OTHER, SELFPAY ==
[2019-08-13 15:44] LABS: Luteinizing Hormone 1.36 mIU/mL
[2019-08-14 19:11] LABS: Tissue Transglutaminase IgA <2 U/mL (0-3)
[2019-08-16 05:40] LABS: Percent Free Testosterone 1.53 % (1.50-4.20); Testosterone Total 281.1 ng/dL (264.0-916.0)
== END ==
PROVIDERS: PCP Family Medicine; Referring Provider Internal Medicine Endocrinology, Diabetes & Metabolism; Visit Provider Internal Medicine Endocrinology, Diabetes & Metabolism
DX: M81.0 Age-related osteoporosis without current pathological fracture (principal)
CPT/HCPCS: 36415; 83002; 83516; 84402; 84403

== ENCOUNTER → 2019-08-15 10:01 | Outpatient (CLI) | payer MEDICARE, OTHER, SELFPAY ==
[2019-08-15 16:43] LABS: Calcium 24 Hour Urine 115 mg/day (100-300); Calcium Urine Random 3.7 mg/dL; Collection Time Urine 24 Hours; Total Volume Urine 3100 mL
[2019-08-15 16:49] LABS: Collection Time Urine 24 Hours; Creatinine 24 Hour Urine 2083 mg/day (1000-2000); Creatinine Urine Random 67.2 mg/dL; Total Volume Urine 3100 mL
== END ==
PROVIDERS: PCP Family Medicine; Referring Provider Internal Medicine Endocrinology, Diabetes & Metabolism; Visit Provider Internal Medicine Endocrinology, Diabetes & Metabolism
DX: M81.0 Age-related osteoporosis without current pathological fracture (principal)
CPT/HCPCS: 82340; 82570

== ENCOUNTER → 2019-09-02 08:29 | Outpatient (CLI) | payer MEDICARE, OTHER, SELFPAY ==
[2019-09-02 08:44] LABS: Bacteria Urine None Seen; RBC Urine None Seen (0-5/HPF); WBC Urine None Seen (0-5/HPF)
[2019-09-02 09:53] LABS: Add Manual Diff / Slide Review NO; Basophils Absolute Auto 0 /uL (0-100); Basophils Percent Auto 0.8 % (0-2); Eosinophils Absolute Auto 300 /uL (0-450); Eosinophils Percent Auto 7.3 % (2-4); Hematocrit 39.8 % (41-53); Hemoglobin 13.4 g/dL (13.5-17.5); Lymphocytes Absolute Auto 1100 /uL (1100-4500); Mean Corpuscular HGB Conc 33.7 % (30-36); Mean Corpuscular Volume 94.8 fL (80-100); Monocytes Absolute Auto 400 /uL (0-900); Monocytes Percent Auto 8.5 % (3-14); Neutrophils Absolute Auto 2500 /uL (1500-7000); Neutrophils Percent Auto 57.4 % (50-75); Platelet Count 155 X10^3/uL (150-400); White Blood Cell Count 4.3 X10^3/uL (4.5-11.0)
[2019-09-02 09:55] LABS: Prothrombin Time 11.6 SECONDS (10.1-12.7)
[2019-09-02 10:41] LABS: BUN Creatinine Ratio 27.6 (6-22); Blood Urea Nitrogen 21 mg/dL (9-20); Calcium 9.3 mg/dL (8.4-10.2); Carbon Dioxide 30 mmol/L (22-32); Chloride 102 mmol/L (98-107); Estimated Glomerular Filt Rate > 60.0 mL/min (>60); Glucose 89 mg/dL (80-110); HEMOLYSIS < 15 (0-50); Potassium 4.8 mmol/L (3.4-5.1); Sodium 137 mmol/L (137-145)
[2019-09-02 12:15] LABS: Culture Indicated Urine Cult Not Indicated; Urine Comments Microscopic Normal
== END ==
PROVIDERS: PCP Family Medicine; Referring Provider Family Medicine; Visit Provider Family Medicine
DX: Z01.810 Encounter for preprocedural cardiovascular examination (principal); Z01.812 Encounter for preprocedural laboratory examination
CPT/HCPCS: 36415; 80048; 81015; 85025; 85610; 93005

== ENCOUNTER → 2019-09-04 11:19 | Outpatient (CLI) | payer MEDICARE, OTHER, SELFPAY | PROVIDERS: PCP Family Medicine; Visit Provider Family Medicine | DX: M43.26 Fusion of spine, lumbar region (principal) | CPT/HCPCS: 87797 ==

== ENCOUNTER → 2019-10-16 09:27 | Outpatient (CLI) | payer MEDICARE, OTHER, SELFPAY ==
--- NOTE | 2019-10-16 | DI.RAD.S_ITS ---
PROCEDURE: XR T AND L SPINE 2 TO 3 VIEWS INDICATIONS: History of falling TECHNIQUE: 2 views acquired of the thoracolumbar spine. COMPARISON: [facility], CT, CT THORACIC SPINE WO CON, 04/04/2019, 9:41. [facility], CT, CT LUMBAR SPINE WO CON, 09/14/2018, 13:41. FINDINGS: Bones: No acute fractures or dislocations. Visualized inferior ribs appear intact. No suspicious bony lesions. Extensive prior spine fusion surgery with multiple varying term rods extending from the high thoracic region into the pelvis. Soft tissues: No suspicious soft tissue calcifications. IVC filter in apparent normal positioning. IMPRESSION: No trauma found. IVC filter in normal position. Spinal canal nerve stimulator electrode in leads appear normal. Dictated by: Ramin Alejandre M.D. on 10/16/2019 at 12:36 Approved by: Ramin Alejandre M.D. on 10/16/2019 at 12:38
== END ==
PROVIDERS: PCP Family Medicine; Referring Provider Orthopaedic Surgery; Visit Provider Orthopaedic Surgery
DX: Z45.49 Encounter for adjustment and management of other implanted nervous system device (principal); Z91.81 History of falling; Z98.1 Arthrodesis status; Z96.82 Presence of neurostimulator
CPT/HCPCS: 72082

== ENCOUNTER → 2020-05-20 11:46 | Outpatient (CLI) | payer MEDICARE, OTHER, SELFPAY ==
[2020-05-20 12:36] LABS: Add Manual Diff / Slide Review NO; Basophils Absolute Auto 0 /uL (0-100); Basophils Percent Auto 0.8 % (0-2); Eosinophils Absolute Auto 300 /uL (0-450); Eosinophils Percent Auto 6.6 % (2-4); Hematocrit 40.3 % (41-53); Hemoglobin 13.6 g/dL (13.5-17.5); Lymphocytes Absolute Auto 1100 /uL (1100-4500); Lymphocytes Percent Auto 20.7 % (25-40); Mean Corpuscular HGB Conc 33.7 % (30-36); Mean Corpuscular Hemoglobin 31.9 PG (26-34); Mean Corpuscular Volume 94.6 fL (80-100); Monocytes Absolute Auto 400 /uL (0-900); Monocytes Percent Auto 7.6 % (3-14); Neutrophils Absolute Auto 3300 /uL (1500-7000); Neutrophils Percent Auto 64.3 % (50-75); Platelet Count 171 X10^3/uL (150-400); Red Blood Cell Count 4.26 X10^6/uL (4.5-5.9); Red Cell Distribution Width 14.5 % (11.6-14.8); White Blood Cell Count 5.1 X10^3/uL (4.5-11.0)
[2020-05-20 12:47] LABS: Alanine Aminotransferase 32 IU/L (<50); Albumin 4.6 g/dL (3.5-5.0); Albumin Globulin Ratio 1.9 (1.0-2.8); Alkaline Phosphatase 77 U/L (38-126); Aspartate Aminotransferase 34 IU/L (17-59); BUN Creatinine Ratio 23.6 (6-22); Bilirubin Total 0.4 mg/dL (0.2-1.3); Blood Urea Nitrogen 21 mg/dL (9-20); Calcium 9.8 mg/dL (8.4-10.2); Carbon Dioxide 30 mmol/L (22-32); Chloride 100 mmol/L (98-107); Cholesterol 183 mg/dL (140-199); Estimated Glomerular Filt Rate > 60.0 mL/min (>60); Globulin 2.4 g/dL (1.7-4.1); Glucose 88 mg/dL (80-110); HDL Cholesterol 60 mg/dL (40-60); HEMOLYSIS < 15 (0-50); LDL Cholesterol Calculated 100 mg/dL (<100); Sodium 136 mmol/L (137-145); Triglycerides 116 mg/dL (35-150); Uric Acid 5.8 mg/dL (3.5-8.5)
[2020-05-20 13:16] LABS: Prostate Specific Antigen Scrn 1.05 ng/mL (0.1-4.0)
[2020-05-20 13:17] LABS: Free T4, Direct Thyroxine 1.37 ng/dL (0.78-2.19)
[2020-05-20 13:31] LABS: Thyroid Stimulating Hormone 3.79 uIU/mL (0.47-4.68)
== END ==
PROVIDERS: PCP Family Medicine; Referring Provider Family Medicine; Visit Provider Family Medicine
DX: E03.9 Hypothyroidism, unspecified (principal); E78.2 Mixed hyperlipidemia; Z12.5 Encounter for screening for malignant neoplasm of prostate; M25.552 Pain in left hip; N40.0 Benign prostatic hyperplasia without lower urinary tract symptoms; E55.9 Vitamin D deficiency, unspecified
CPT/HCPCS: 36415; 80053; 80061; 82306; 84439; 84443; 84550; 85025; G0103

== ENCOUNTER → 2021-05-10 09:53 | Outpatient (CLI) | payer MEDICARE, OTHER, SELFPAY ==
[2021-05-10 10:41] LABS: Add Manual Diff / Slide Review NO; Basophils Absolute Auto 0 /uL (0-100); Basophils Percent Auto 0.7 % (0-2); Eosinophils Absolute Auto 200 /uL (0-450); Eosinophils Percent Auto 5.6 % (2-4); Hematocrit 41.6 % (41-53); Hemoglobin 13.7 g/dL (13.5-17.5); Lymphocytes Absolute Auto 1000 /uL (1100-4500); Lymphocytes Percent Auto 23.5 % (25-40); Mean Corpuscular HGB Conc 33.1 % (30-36); Mean Corpuscular Hemoglobin 31.4 PG (26-34); Mean Corpuscular Volume 94.8 fL (80-100); Monocytes Absolute Auto 300 /uL (0-900); Monocytes Percent Auto 7.6 % (3-14); Neutrophils Absolute Auto 2500 /uL (1500-7000); Neutrophils Percent Auto 62.6 % (50-75); Platelet Count 152 X10^3/uL (150-400); Red Blood Cell Count 4.38 X10^6/uL (4.5-5.9); Red Cell Distribution Width 13.6 % (11.6-14.8); White Blood Cell Count 4.1 X10^3/uL (4.5-11.0)
[2021-05-10 11:00] LABS: HEMOLYSIS < 15 (0-50); Iron 82 ug/dL (49-181)
[2021-05-10 11:02] LABS: Alanine Aminotransferase 38 IU/L (<50); Albumin 4.6 g/dL (3.5-5.0); Albumin Globulin Ratio 1.9 (1.0-2.8); Alkaline Phosphatase 67 U/L (38-126); Aspartate Aminotransferase 41 IU/L (17-59); BUN Creatinine Ratio 23.7 (6-22); Bilirubin Total 0.6 mg/dL (0.2-1.3); Blood Urea Nitrogen 22 mg/dL (9-20); Calcium 9.7 mg/dL (8.4-10.2); Carbon Dioxide 31 mmol/L (22-32); Chloride 103 mmol/L (98-107); Estimated Glomerular Filt Rate > 60.0 mL/min (>60); Globulin 2.4 g/dL (1.7-4.1); Glucose 98 mg/dL (80-110); HEMOLYSIS < 15 (0-50); Potassium 5.1 mmol/L (3.4-5.1); Sodium 138 mmol/L (137-145)
[2021-05-10 11:12] LABS: Percent Iron Saturation 37 % (20-50); Total Iron Binding Capacity 221 ug/dL (261-462); Transferrin 196 mg/dL (206-381)
[2021-05-10 11:16] LABS: Free T4, Direct Thyroxine 1.51 ng/dL (0.78-2.19)
[2021-05-10 11:30] LABS: Thyroid Stimulating Hormone 3.24 uIU/mL (0.47-4.68)
[2021-05-10 11:34] LABS: Prostate Specific Antigen Scrn 1.16 ng/mL (0.1-4.0)
[2021-05-10 11:53] LABS: Vitamin B12 > 1000 pg/mL (239-931)
[2021-05-10 16:59] LABS: Vitamin D 25 Hydroxy (D3) 46.2 ng/mL (30.0-100.0)
[2021-05-13 21:10] LABS: Estrogen 97 pg/mL (56-213)
== END ==
PROVIDERS: PCP Family Medicine; Referring Provider Family Medicine; Visit Provider Family Medicine
DX: E03.9 Hypothyroidism, unspecified (principal); E78.2 Mixed hyperlipidemia; E55.9 Vitamin D deficiency, unspecified; G89.29 Other chronic pain; N40.0 Benign prostatic hyperplasia without lower urinary tract symptoms; M81.0 Age-related osteoporosis without current pathological fracture; Z12.5 Encounter for screening for malignant neoplasm of prostate
CPT/HCPCS: 36415; 80053; 82306; 82607; 82672; 83540; 83550; 84439; 84443; 85025; G0103

== ENCOUNTER → 2022-05-04 10:55 | Outpatient (CLI) | payer MEDICARE, OTHER, SELFPAY ==
[2022-05-04 12:25] LABS: Add Manual Diff / Slide Review NO; Basophils Absolute Auto 0 /uL (0-100); Basophils Percent Auto 0.7 % (0-2); Eosinophils Absolute Auto 300 /uL (0-450); Eosinophils Percent Auto 6.3 % (2-4); Hematocrit 39.9 % (41-53); Hemoglobin 13.5 g/dL (13.5-17.5); Lymphocytes Absolute Auto 1300 /uL (1100-4500); Mean Corpuscular HGB Conc 33.8 % (30-36); Mean Corpuscular Hemoglobin 31.7 PG (26-34); Mean Corpuscular Volume 93.7 fL (80-100); Monocytes Absolute Auto 400 /uL (0-900); Monocytes Percent Auto 7.6 % (3-14); Neutrophils Absolute Auto 2800 /uL (1500-7000); Neutrophils Percent Auto 58.4 % (50-75); Platelet Count 150 X10^3/uL (150-400); Red Blood Cell Count 4.25 X10^6/uL (4.5-5.9); Red Cell Distribution Width 13.7 % (11.6-14.8); White Blood Cell Count 4.8 X10^3/uL (4.5-11.0)
[2022-05-04 12:40] LABS: Alanine Aminotransferase 55 IU/L (<50); Albumin 4.4 g/dL (3.5-5.0); Albumin Globulin Ratio 1.8 (1.0-2.8); Alkaline Phosphatase 59 U/L (38-126); Aspartate Aminotransferase 45 IU/L (17-59); BUN Creatinine Ratio 23.1 (6-22); Bilirubin Total 0.7 mg/dL (0.2-1.3); Blood Urea Nitrogen 24 mg/dL (9-20); Calcium 9.1 mg/dL (8.4-10.2); Carbon Dioxide 29 mmol/L (22-32); Chloride 101 mmol/L (98-107); Estimated Glomerular Filt Rate > 60 mL/min (>60); Globulin 2.4 g/dL (1.7-4.1); Glucose 75 mg/dL (80-110); HEMOLYSIS < 15 (0-50); Potassium 4.9 mmol/L (3.4-5.1); Sodium 138 mmol/L (137-145); Total Protein 6.8 g/dL (6.3-8.2)
[2022-05-04 13:15] LABS: Free T4, Direct Thyroxine 1.42 ng/dL (0.78-2.19)
[2022-05-04 13:29] LABS: Thyroid Stimulating Hormone 2.81 uIU/mL (0.47-4.68)
== END ==
PROVIDERS: PCP Family Medicine; Referring Provider Family Medicine; Visit Provider Family Medicine
DX: E78.2 Mixed hyperlipidemia (principal); G89.29 Other chronic pain; M81.0 Age-related osteoporosis without current pathological fracture; N40.0 Benign prostatic hyperplasia without lower urinary tract symptoms; M54.50 Low back pain, unspecified
CPT/HCPCS: 36415; 80053; 84439; 84443; 85025

== ENCOUNTER → 2022-07-26 07:59 | Outpatient (CLI) | payer MEDICARE, OTHER, SELFPAY ==
--- NOTE | 2022-07-26 08:21 | DI.DEXA.S_ITS ---
[place] +---------+ Hospital +---------+ : : [address] : : : : [id number] : : : : Phone: [phone]---------+ Echocardiogram Report + + :Name: ERIC FRANCIS Study Date: 07/26/2022 Height: 74 in : :[facility] ReadingLocation: Weight: 250 lb : : Gender: Male BSA: 2.4 m2 : :: 1940 Age: 82 yrs BP: 129/82 mmHg: :Reason For Study: HEART MURMUR : :Ordering Physician: JUDY, : :ANDRES Walker D.O Performed By: Jessica Rhodes : :Referring: JD KIM D.O : + + Interpretation Summary The ejection fraction is estimated to be 50-55%. Diastolic function could not be accurately assessed due to contradictory data. The left atrium is moderately dilated. The right ventricle is normal in size and function. There is moderate aortic valve sclerosis. There is mild tricuspid regurgitation. The right ventricular systolic pressure is estimated to be at least 28 mmHg based on an estimated right atrial pressure of 8 mm Hg. Procedure: A two-dimensional transthoracic echocardiogram with color flow and Doppler was performed. The study quality was technically adequate. There is no prior echocardiogram noted for this patient. The patient was in sinus bradycardia with heart rates between 55-60 bpm during the exam. Left Ventricle: Proximal septal thickening is noted. The left ventricle is normal in size. The ejection fraction is estimated to be 50-55%. Diastolic function could not be accurately assessed due to contradictory data. Right Ventricle: The right ventricle is normal in size and function. Atria: The left atrium is moderately dilated. Right atrial size is normal. There is no Doppler evidence for an interatrial shunt. Mitral Valve: The mitral valve leaflets are mildly calcified. There is mild mitral annular calcification. There is trace mitral regurgitation. Aortic Valve: The aortic valve is moderately calcified. There is moderate aortic valve sclerosis. The peak aortic velocity is 2.0 m/sec. The aortic valve mean gradient is 10 mmHg. The calculated aortic valve area is 2.1 cm2. There is no hemodynamically significant valvular aortic stenosis. No aortic regurgitation is present. Tricuspid Valve: The tricuspid valve is normal in structure and function. There is mild tricuspid regurgitation. The right ventricular systolic pressure is estimated to be at least 28 mmHg based on an estimated right atrial pressure of 8 mm Hg. Pulmonic Valve: The pulmonic valve is not well visualized. There is no pulmonic valvular regurgitation. Great Vessels: The aortic root is borderline dilated. The ascending aorta is normal in size. The IVC is dilated (diameter is greater than 2.1 cm) yet it collapses greater than 50% with a sniff. This suggests a right atrial pressure of 8 mm Hg. Pericardium/ Pleura There is no pericardial effusion. There is no pleural effusion. MMode/2D Measurements & Calculations LVIDd: 5.5 cm LVOT diam: 2.4 cm LVIDs: 3.5 cm Ao root diam: 3.9 cm FS: 37.3 % asc Aorta Diam: 3.6 cm IVSd: 1.3 cm Ao Arch Diam (Prox Trans): 3.0 cm LVPWd: 0.83 cm LV meléndez. diameter/BSA (cm/m^2): 2.3 LV sys. diameter/BSA (cm/m^2): 1.4 LA A2 area: 27.2 cm2 RA long axis: 5.4 cm LA A4 area: 24.0 cm2 RA area: 18.1 cm2 LA length (vol): 5.8 cm RA vol: 51.5 ml LA vol: 96.0 ml RA : 21.5 ml/m2 LA vol index: 40.2 ml/m2 IVC diam: 2.4 cm RVD1 (basal): 3.9 cm RVD2 (mid): 3.1 cm TAPSE: 2.6 cm Doppler Measurements & Calculations Ao V2 max: 199.6 cm/sec LVOT Max Samuel: 110.6 cm/sec Ao V2 mean: 141.0 cm/sec LV V1 max P.9 mmHg Ao max P.6 mmHg LV V1 VTI: 27.5 cm Ao mean P.8 mmHg DARLINE(I,D): 2.8 cm2 Ao V2 VTI: 44.1 cm DARLINE(V,D): 2.5 cm2 sev ratio: 0.62 DARLINE indexed to BSA (cm^2/m^2): 1.2 MV E max samuel: 83.4 cm/sec TR max samuel: 222.5 cm/sec MV A max samuel: 120.7 cm/sec TR max P.8 mmHg MV E/A: 0.69 PA V2 max: 99.9 cm/sec Med Peak E' Samuel: 6.0 cm/sec PA V2 mean: 73.7 cm/sec E/E' med: 13.8 PA mean P.3 mmHg Lat Peak E' Samuel: 7.1 cm/sec E/E' lat: 11.7 E/e' average: 12.8 MV dec time: 0.36 sec SV(OT): 124.9 ml Reading Physician:11:03 AM
== END ==
PROVIDERS: PCP Family Medicine; Referring Provider Family Medicine; Visit Provider Family Medicine
DX: R01.1 Cardiac murmur, unspecified (principal); I08.3 Combined rheumatic disorders of mitral, aortic and tricuspid valves
CPT/HCPCS: 93306

== ENCOUNTER → 2022-09-30 07:40 | Outpatient (CLI) | payer MEDICARE, OTHER, SELFPAY ==
[2022-09-30 08:31] LABS: Alanine Aminotransferase 40 IU/L (<50); Albumin 4.1 g/dL (3.5-5.0); Albumin Globulin Ratio 1.9 (1.0-2.8); Alkaline Phosphatase 57 U/L (38-126); Aspartate Aminotransferase 36 IU/L (17-59); Bilirubin Total 0.6 mg/dL (0.2-1.3); Blood Urea Nitrogen 22 mg/dL (9-20); Calcium 9.2 mg/dL (8.4-10.2); Carbon Dioxide 32 mmol/L (22-32); Chloride 100 mmol/L (98-107); Cholesterol 178 mg/dL (140-199); Estimated Glomerular Filt Rate > 60 mL/min (>60); Globulin 2.2 g/dL (1.7-4.1); Glucose 90 mg/dL (80-110); HDL Cholesterol 69 mg/dL (40-60); HEMOLYSIS < 15 (0-50); LDL Cholesterol Calculated 94 mg/dL (<100); Potassium 4.4 mmol/L (3.4-5.1); Sodium 136 mmol/L (137-145); Total Protein 6.3 g/dL (6.3-8.2); Triglycerides 75 mg/dL (35-150); Uric Acid 5.6 mg/dL (3.5-8.5)
[2022-09-30 08:47] LABS: Vitamin D 25 Hydroxy (D3) 57.3 ng/mL (30.0-100.0)
[2022-09-30 08:59] LABS: Free T4, Direct Thyroxine 1.28 ng/dL (0.78-2.19)
[2022-09-30 09:00] LABS: Prostate Specific Antigen Scrn 1.31 ng/mL (0.1-4.0)
[2022-09-30 09:13] LABS: Thyroid Stimulating Hormone 3.74 uIU/mL (0.47-4.68)
== END ==
PROVIDERS: PCP Family Medicine; Referring Provider Family Medicine; Visit Provider Family Medicine
DX: I10 Essential (primary) hypertension (principal); Z12.5 Encounter for screening for malignant neoplasm of prostate; E55.9 Vitamin D deficiency, unspecified; G89.29 Other chronic pain; M81.0 Age-related osteoporosis without current pathological fracture; E03.9 Hypothyroidism, unspecified; N40.0 Benign prostatic hyperplasia without lower urinary tract symptoms; M54.50 Low back pain, unspecified
CPT/HCPCS: 36415; 80053; 80061; 82306; 84439; 84443; 84550; G0103

== ENCOUNTER → 2023-01-06 08:03 | Outpatient (CLI) | payer MEDICARE, OTHER, SELFPAY ==
[2023-01-06 10:43] LABS: Iron 65 ug/dL (49-181)
[2023-01-06 10:52] LABS: Percent Iron Saturation 31 % (20-50); Total Iron Binding Capacity 213 ug/dL (261-462)
[2023-01-06 11:20] LABS: Ferritin 671 ng/mL (18-464)
== END ==
PROVIDERS: PCP Family Medicine; Referring Provider Nurse Practitioner; Visit Provider Nurse Practitioner
DX: E83.10 Disorder of iron metabolism, unspecified (principal); G25.81 Restless legs syndrome
CPT/HCPCS: 36415; 82728; 83540; 83550

== ENCOUNTER → 2023-05-16 07:56 | Outpatient (CLI) | payer MEDICARE, OTHER, SELFPAY ==
[2023-05-16 08:16] LABS: Add Manual Diff / Slide Review NO; Basophils Absolute Auto 0 /uL (0-100); Basophils Percent Auto 1.1 % (0-2); Eosinophils Absolute Auto 300 /uL (0-450); Eosinophils Percent Auto 7.4 % (2-4); Hemoglobin 12.8 g/dL (13.5-17.5); Lymphocytes Absolute Auto 1400 /uL (1100-4500); Lymphocytes Percent Auto 30.6 % (25-40); Mean Corpuscular HGB Conc 33.7 % (30-36); Mean Corpuscular Hemoglobin 31.3 PG (26-34); Mean Corpuscular Volume 93.1 fL (80-100); Monocytes Absolute Auto 300 /uL (0-900); Monocytes Percent Auto 6.9 % (3-14); Neutrophils Absolute Auto 2400 /uL (1500-7000); Platelet Count 145 X10^3/uL (150-400); Red Blood Cell Count 4.08 X10^6/uL (4.5-5.9); Red Cell Distribution Width 13.7 % (11.6-14.8); White Blood Cell Count 4.5 X10^3/uL (4.5-11.0)
[2023-05-16 08:49] LABS: Alanine Aminotransferase 48 IU/L (<50); Albumin 4.3 g/dL (3.5-5.0); Albumin Globulin Ratio 1.7 (1.0-2.8); Alkaline Phosphatase 54 U/L (38-126); Aspartate Aminotransferase 46 IU/L (17-59); BUN Creatinine Ratio 28.4 (6-22); Bilirubin Total 0.7 mg/dL (0.2-1.3); Blood Urea Nitrogen 25 mg/dL (9-20); Calcium 9.4 mg/dL (8.4-10.2); Carbon Dioxide 30 mmol/L (22-32); Chloride 104 mmol/L (98-107); Cholesterol 176 mg/dL (140-199); Estimated Glomerular Filt Rate > 60 mL/min (>60); Globulin 2.5 g/dL (1.7-4.1); Glucose 91 mg/dL (80-110); HDL Cholesterol 68 mg/dL (40-60); HEMOLYSIS < 15 (0-50); LDL Cholesterol Calculated 91 mg/dL (<100); Potassium 4.3 mmol/L (3.4-5.1); Sodium 139 mmol/L (137-145); Total Protein 6.8 g/dL (6.3-8.2); Triglycerides 86 mg/dL (35-150)
[2023-05-16 09:45] LABS: Free T4, Direct Thyroxine 1.25 ng/dL (0.78-2.19)
== END ==
PROVIDERS: PCP Family Medicine; Referring Provider Family Medicine; Visit Provider Family Medicine
DX: E78.2 Mixed hyperlipidemia (principal); I10 Essential (primary) hypertension; E03.9 Hypothyroidism, unspecified; Z79.899 Other long term (current) drug therapy
CPT/HCPCS: 36415; 80053; 80061; 84439; 84443; 85025

== ENCOUNTER → 2023-05-31 16:34 | Outpatient (CLI) | payer MEDICARE, OTHER, SELFPAY ==
--- NOTE | 2023-05-31 16:38 | DI.RAD.S_ITS ---
PROCEDURE: XR CERVICAL SPINE 4V OR 5V INDICATIONS: SPINE PAIN TECHNIQUE: 5 views of the cervical spine acquired. COMPARISON: None. FINDINGS: Bones: No fractures or dislocations to the T1 level. Oblique images demonstrate no bony foraminal stenoses. Multilevel degenerative disc space narrowing most severe at C3-4, C6-7. Multilevel anterior osteophytes are present. Multilevel uncovertebral arthropathy is present. Bilateral foraminal narrowing is present most notable at C5-6 and C6-7. Partially visualized thoracic fixation rods are present. Soft tissues: No prevertebral soft tissue swelling. IMPRESSION: Multilevel degenerative changes as above. Dictated by: Brina Joaquin M.D. on 06/01/2023 at 23:11 Approved by: Brina Joaquin M.D. on 06/01/2023 at 23:12
== END ==
PROVIDERS: PCP Family Medicine; Referring Provider Acupuncturist; Visit Provider Acupuncturist
DX: M47.812 Spondylosis without myelopathy or radiculopathy, cervical region (principal); M54.2 Cervicalgia; M48.02 Spinal stenosis, cervical region
CPT/HCPCS: 72050

== ENCOUNTER → 2023-07-14 10:48 | Outpatient (CLI) | payer MEDICARE, OTHER, SELFPAY ==
--- NOTE | 2023-07-14 10:50 | DI.MRI.S_ITS ---
PROCEDURE: MR LUMBAR SPINE WO CON INDICATIONS: CERVICAL,THORACIC LUMBAR PAIN TECHNIQUE: Noncontrast sagittal T1 spin echo and T2 fast echo, sagittal STIR, and T2 fast spin echo through the lumbar spine. In cases with scoliosis, additional coronal T2 fast spin echo may be performed. COMPARISON: [facility], MR, L-SPINE WITHOUT CONTRAST, 04/11/2014, 13:48. FINDINGS: Image quality: Excellent. Surgical change: Posterior surgical fusion of at least T11 through S1 and through the pelvis. Interbody fusion at L3-4, L4-5. Alignment and Curvature: Grade 1 retrolisthesis of L3 on L4. Bone Marrow: Marrow is of normal overall signal. No acute vertebral body compression fractures. Spinal Cord: Conus medullaris terminates at the L1 level. Visualized cord demonstrates normal signal and size. Paraspinous Soft Tissues: No paravertebral masses. T12-L1: Broad-based disc bulge and mild disc height loss. L1-L2: Broad-based disc bulge and moderate disc height loss. L2 Schmorl's node. L2-L3: Broad-based disc bulge, moderate disc height loss. L3-L4: Moderate right neural foraminal narrowing. L4-L5: Broad-based disc bulge. [id number] bilateral neural foraminal narrowing. L5-S1: Broad-based disc bulge. IMPRESSION: Interval surgical fusion of the spine and pelvis. No significant spinal canal narrowing. [id number] bilateral neural foraminal narrowing at L4-5 and moderate right neural foraminal narrowing at L3-4. Dictated by: Monty Nagel M.D. on 07/14/2023 at 14:04 Approved by: Monty Nagel M.D. on 07/14/2023 at 14:10
== END ==
LOC: MRI 10:48
PROVIDERS: PCP Family Medicine; Referring Provider Acupuncturist; Visit Provider Acupuncturist
DX: M48.061 Spinal stenosis, lumbar region without neurogenic claudication (principal); M43.16 Spondylolisthesis, lumbar region; M51.36 Other intervertebral disc degeneration, lumbar region; M51.37 Other intervertebral disc degeneration, lumbosacral region; Z96.89 Presence of other specified functional implants; Z98.1 Arthrodesis status
CPT/HCPCS: 72148

== ENCOUNTER → 2023-07-17 13:13 | Outpatient (CLI) | payer MEDICARE, OTHER, SELFPAY ==
--- NOTE | 2023-07-17 | DI.MRI.S_ITS ---
PROCEDURE: MR CERVICAL SPINE WO CON INDICATIONS: CERVICAL,THORACIC LUMBAR PAIN TECHNIQUE: Noncontrast sagittal T1 spin echo and T2 fast spin echo, sagittal STIR, foraminal oblique sagittal T2 fast spin echo, and axial gradient echo or T2 fast spin echo through the cervical spine. COMPARISON: None. FINDINGS: Image quality: Excellent. Alignment and Curvature: Mild retrolisthesis of C3 on C4. Mild anterolisthesis of C4 on C5, C5 on C6, and C7 on T1. Bone Marrow: Multilevel fibrovascular endplate change. Spinal Cord: Visualized spinal cord has normal size and signal. No cerebellar tonsillar herniation. Paraspinous Soft Tissues: No paravertebral masses. Prevertebral soft tissues are normal in thickness. C2-3: Unremarkable C3-4: Posterior disc osteophyte complex. Moderate bilateral facet arthropathy. Mild central canal stenosis. Moderate right and left neural foraminal stenosis. C4-5: Posterior disc osteophyte complex. No central canal stenosis. Moderate bilateral facet arthropathy. No right neural foraminal stenosis. Mild left neural foraminal stenosis. C5-6: Posterior disc uncovering and posterior disc osteophyte complex. Moderate bilateral facet arthropathy. Mild central canal stenosis. No neural foraminal stenosis. C6-7: Posterior disc osteophyte complex. No central canal stenosis. Moderate bilateral facet arthropathy. No right neural foraminal stenosis. Mild left neural foraminal stenosis. C7-T1: Posterior disc uncovering. No central canal stenosis. No neural foraminal stenosis. Other soft tissue findings: Unremarkable IMPRESSION: 1. Multilevel degenerate changes cervical spine, with multilevel mild central canal stenosis. 2. Additional neural foraminal stenosis as described above. Dictated by: Eusebia Abreu M.D. on 07/17/2023 at 19:33 Approved by: Eusebia Abreu M.D. on 07/17/2023 at 19:45
== END ==
LOC: MRI 13:14
PROVIDERS: PCP Family Medicine; Referring Provider Acupuncturist; Visit Provider Acupuncturist
DX: M48.02 Spinal stenosis, cervical region (principal); M47.812 Spondylosis without myelopathy or radiculopathy, cervical region
CPT/HCPCS: 72141

== ENCOUNTER → 2023-07-20 08:46 | Outpatient (CLI) | payer MEDICARE, OTHER, SELFPAY ==
--- NOTE | 2023-07-20 08:47 | DI.MRI.S_ITS ---
PROCEDURE: MR THORACIC SPINE WO CON INDICATIONS: CERVICAL,THORACIC LUMBAR PAIN TECHNIQUE: Noncontrast sagittal T1 spine echo and T2 fast spin echo, sagittal STIR, and T2 fast spin echo through the thoracic spine. COMPARISON: None. FINDINGS: Image quality: Hardware artifact limits evaluation. Alignment and Curvature: There is normal bony alignment. Bone Marrow: Posterior spinal fixation extending from from T5 through L1 and inferiorly out of the field of view. Marrow is of normal overall signal. No acute vertebral body compression fractures. Spinal Cord: Visualized spinal cord is normal in size and signal. Paraspinous Soft Tissues: No paravertebral masses. Miscellaneous: Hardware artifact limits evaluation of the neural foramina. The left neural foramina in the regions of hardware are unable to be evaluated. On axial images, there is no significant central canal or neural foraminal stenosis within the limitations. IMPRESSION: Posterior spinal fixation hardware extending from T5 through L1 and inferiorly out of the field of view. Hardware artifact limits evaluation. Within these limitations, no significant central canal or neural foraminal stenosis is identified. Dictated by: Randall Baker M.D. on 07/20/2023 at 11:10 Approved by: Randall Baker M.D. on 07/20/2023 at 11:18
== END ==
PROVIDERS: PCP Family Medicine; Referring Provider Acupuncturist; Visit Provider Acupuncturist
DX: Z09 Encounter for follow-up examination after completed treatment for conditions other than malignant neoplasm (principal); Z96.82 Presence of neurostimulator
CPT/HCPCS: 72146

== ENCOUNTER → 2023-08-17 09:15 | Outpatient (CLI) | payer MEDICARE, OTHER, SELFPAY ==
[2023-08-17 10:35] LABS: Free T4, Direct Thyroxine 1.29 ng/dL (0.78-2.19)
[2023-08-17 10:49] LABS: Thyroid Stimulating Hormone 2.47 uIU/mL (0.47-4.68)
== END ==
PROVIDERS: PCP Family Medicine; Referring Provider Family Medicine; Visit Provider Family Medicine
DX: I10 Essential (primary) hypertension (principal); E03.9 Hypothyroidism, unspecified
CPT/HCPCS: 36415; 84439; 84443

== ENCOUNTER → 2023-12-04 14:42 | Outpatient (CLI) | payer MEDICARE, OTHER, SELFPAY ==
[2023-12-04 15:56] LABS: Free T4, Direct Thyroxine 1.29 ng/dL (0.78-2.19)
[2023-12-04 16:08] LABS: Alanine Aminotransferase 46 IU/L (<50); Albumin 3.9 g/dL (3.5-5.0); Albumin Globulin Ratio 1.6 (1.0-2.8); Alkaline Phosphatase 69 U/L (38-126); Aspartate Aminotransferase 47 IU/L (17-59); BUN Creatinine Ratio 30.9 (6-22); Bilirubin Total 0.5 mg/dL (0.2-1.3); Blood Urea Nitrogen 30 mg/dL (9-20); Calcium 9.4 mg/dL (8.4-10.2); Carbon Dioxide 32 mmol/L (22-32); Chloride 102 mmol/L (98-107); Estimated Glomerular Filt Rate > 60 mL/min (>60); Globulin 2.4 g/dL (1.7-4.1); Glucose 115 mg/dL (80-110); HEMOLYSIS < 15 (0-50); Potassium 4.8 mmol/L (3.4-5.1); Sodium 136 mmol/L (137-145); Total Protein 6.3 g/dL (6.3-8.2)
[2023-12-04 20:44] LABS: Thyroid Stimulating Hormone 1.04 uIU/mL (0.47-4.68)
== END ==
PROVIDERS: PCP Family Medicine; Referring Provider Family Medicine; Visit Provider Family Medicine
DX: I10 Essential (primary) hypertension (principal); N40.0 Benign prostatic hyperplasia without lower urinary tract symptoms; E03.9 Hypothyroidism, unspecified
CPT/HCPCS: 36415; 80053; 84439; 84443

== ENCOUNTER → 2024-02-21 10:18 | Outpatient (CLI) | payer MEDICARE, OTHER, SELFPAY ==
--- NOTE | 2024-02-21 10:19 | DI.RAD.S_ITS ---
PROCEDURE: FL BARIUM SWALLOW INDICATIONS: Chokes easily; pills get stuck in throat COMPARISON: [facility], MR, MR THORACIC SPINE WO CON, 07/20/2023, 9:00. FINDINGS: Please note this examination was limited due to the presence of overlapping thoracic Leiva rods. Function: A few tertiary esophageal contractions are present. Spontaneous esophageal reflux is present to the level of the lower thoracic esophagus in the standing position, and up to the cervical esophagus in the supine position. During the exam, the patient was coughing with subsequent identification of ingested contrast within the right mainstem bronchus. Testing with a barium tablet revealed impaction in the right piriformis sinus, which resolved with a bolus of water. The barium tablet was then able to successfully transit from the esophagus . A small hiatal hernia was also identified. Morphology: Air-contrast images demonstrate normal mucosal morphology. Single contrast views show no esophageal strictures, extrinsic mass effects, or diverticula. Limited images of the stomach demonstrate normal appearance. IMPRESSION: 1. Spontaneous esophageal reflux with small hiatal hernia. 2. Transient impaction bearing tablet in the right piriform sinus, along with aspiration into the right mainstem bronchus. Further evaluation with a video fluoroscopic speech swallow study recommended. Dictated by: Dimitry Birmingham M.D. on 02/21/2024 at 15:10 Approved by: Dimitry Birmingham M.D. on 02/21/2024 at 15:14
== END ==
PROVIDERS: PCP Family Medicine; Referring Provider Physician Assistant; Visit Provider Physician Assistant
DX: K21.9 Gastro-esophageal reflux disease without esophagitis (principal); K44.9 Diaphragmatic hernia without obstruction or gangrene; R13.10 Dysphagia, unspecified
CPT/HCPCS: 74220

== ENCOUNTER → 2024-06-11 08:44 | Outpatient (CLI) | payer MEDICARE, OTHER, SELFPAY ==
[2024-06-11 09:59] LABS: Add Manual Diff / Slide Review NO; Basophils Absolute Auto 0 /uL (0-100); Basophils Percent Auto 0.7 % (0-2); Eosinophils Absolute Auto 200 /uL (0-450); Eosinophils Percent Auto 6.7 % (2-4); Hematocrit 37.1 % (41-53); Hemoglobin 12.3 g/dL (13.5-17.5); Lymphocytes Absolute Auto 1000 /uL (1100-4500); Lymphocytes Percent Auto 27.9 % (25-40); Mean Corpuscular HGB Conc 33.3 % (30-36); Mean Corpuscular Hemoglobin 30.8 PG (26-34); Mean Corpuscular Volume 92.4 fL (80-100); Monocytes Absolute Auto 300 /uL (0-900); Monocytes Percent Auto 8.6 % (3-14); Neutrophils Absolute Auto 2100 /uL (1500-7000); Neutrophils Percent Auto 56.1 % (50-75); Platelet Count 137 X10^3/uL (150-400); Red Blood Cell Count 4.01 X10^6/uL (4.5-5.9); Red Cell Distribution Width 14.6 % (11.6-14.8); White Blood Cell Count 3.7 X10^3/uL (4.5-11.0)
[2024-06-11 10:19] LABS: Alanine Aminotransferase 48 IU/L (<50); Albumin 4.4 g/dL (3.5-5.0); Albumin Globulin Ratio 2.1 (1.0-2.8); Alkaline Phosphatase 58 U/L (38-126); Aspartate Aminotransferase 43 IU/L (17-59); BUN Creatinine Ratio 26.5 (6-22); Bilirubin Total 0.8 mg/dL (0.2-1.3); Blood Urea Nitrogen 22 mg/dL (9-20); Calcium 9.7 mg/dL (8.4-10.2); Carbon Dioxide 29 mmol/L (22-32); Chloride 101 mmol/L (98-107); Estimated Glomerular Filt Rate > 60 mL/min (>60); Globulin 2.1 g/dL (1.7-4.1); Glucose 94 mg/dL (80-110); HEMOLYSIS < 15 (0-50); Potassium 4.5 mmol/L (3.4-5.1); Sodium 136 mmol/L (137-145); Total Protein 6.5 g/dL (6.3-8.2)
[2024-06-11 10:33] LABS: Free T4, Direct Thyroxine 1.21 ng/dL (0.78-2.19)
[2024-06-11 10:47] LABS: Thyroid Stimulating Hormone 0.378 uIU/mL (0.47-4.68)
[2024-06-13 10:11] LABS: Fecal Immunochemical Test Negative (Negative)
== END ==
PROVIDERS: PCP Family Medicine; Referring Provider Family Medicine; Visit Provider Family Medicine
DX: E78.2 Mixed hyperlipidemia (principal); Z12.11 Encounter for screening for malignant neoplasm of colon; E03.9 Hypothyroidism, unspecified; N40.0 Benign prostatic hyperplasia without lower urinary tract symptoms; I10 Essential (primary) hypertension
CPT/HCPCS: 36415; 80053; 82274; 84439; 84443; 85025

== ENCOUNTER → 2024-07-11 08:03 | Outpatient (CLI) | payer MEDICARE, OTHER, SELFPAY ==
--- NOTE | 2024-07-11 08:05 | DI.ECHO.S_ITS ---
[place] [facility] : : [id number] : : [place] : : [id number] : : Phone: [phone] Echocardiogram Report + + :Name: ERIC FRANCIS Study Date: 07/11/2024 Height: 74 in : :[facility] ReadingLocation: Weight: 248 lb : : Gender: Male BSA: 2.4 m2 : :: 1940 Age: 84 yrs BP: 130/81 mmHg: :Reason For Study: HISTORY OF AORTIC SCLEROSIS : :Ordering Physician: JUDY, : :JD Performed By: Jessica Rhodes : :Referring: JD KIM : + + Interpretation Summary Normal sinus rhythm. Normal LV size; mildly increased wall thickness; normal wall motion and LV systolic function. EF is 55-60%. Stage I diastolic dysfunction. Moderately LA enlargement; otherwise normal chamber sizes. Aortic valve is a trileaflet structure with moderately thickened and calcified leaflets with moderately reduced leaflet excursion. there is mild associated aortic stenosis. Otherwise no significant valvular abnormalities. Compared to prior echo 07/26/2022, aortic stenosis is slightly worse. Mean gradient fabio from 10 to 14 mm Hg; peak velocity fabio from 2.1 to 2.5 m/sec. Procedure: A two-dimensional transthoracic echocardiogram with color flow and Doppler was performed. The study quality was technically difficult. Comparison is made with the echocardiogram of 07/26/2022. The patient was in sinus bradycardia with heart rates between 59-61 bpm during the exam. Left Ventricle: The left ventricle is normal in size. Left ventricular wall thickness is mildly increased. The ejection fraction is estimated to be 55- 60%. Right Ventricle: The right ventricle is normal in size and function. Atria: The left atrium is moderately dilated. Right atrial size is normal. There is no Doppler evidence for an interatrial shunt. Mitral Valve: The mitral valve leaflets appear mildly thickened, but open well. There is mild mitral annular calcification. There is no mitral regurgitation noted. Aortic Valve: The aortic valve is moderately calcified. There is mild aortic stenosis. The peak aortic velocity is 2.5 m/sec. The aortic valve mean gradient is 14 mmHg. The calculated aortic valve area is 2.2 cm2. No aortic regurgitation is present. Tricuspid Valve: The tricuspid valve leaflets are thin and pliable. There is mild tricuspid regurgitation. The right ventricular systolic pressure is estimated to be at least 35 mmHg based on an estimated right atrial pressure of 15 mm Hg. Pulmonic Valve: The pulmonic valve is not well visualized. There is no pulmonic valvular regurgitation. Great Vessels: The aortic root is normal size. The ascending aorta is mildly enlarged. The IVC is dilated (diameter is greater than 2.1 cm) and it collapses less than 50% with a sniff. This suggests a high right atrial pressure of 15 mm Hg. Pericardium/ Pleura There is no pericardial effusion. There is no pleural effusion. MMode/2D Measurements & Calculations LVIDd: 4.9 cm LVOT diam: 2.4 cm LVIDs: 3.4 cm Ao root diam: 3.8 cm FS: 30.1 % asc Aorta Diam: 4.1 cm IVSd: 1.2 cm Ao Arch Diam (Prox Trans): 3.0 cm LVPWd: 0.99 cm LV meléndez. diameter/BSA (cm/m^2): 2.0 LV sys. diameter/BSA (cm/m^2): 1.4 LA A2 area: 29.7 cm2 RA long axis: 5.3 cm LA A4 area: 23.4 cm2 RA area: 16.5 cm2 LA length (vol): 5.5 cm RA vol: 43.2 ml LA vol: 106.4 ml RA : 18.2 ml/m2 LA vol index: 44.7 ml/m2 IVC diam: 2.5 cm RVD1 (basal): 4.0 cm RVD2 (mid): 3.5 cm TAPSE: 2.5 cm Doppler Measurements & Calculations Ao V2 max: 251.9 cm/sec LVOT Max Samuel: 121.2 cm/sec Ao V2 mean: 164.5 cm/sec LV V1 max P.9 mmHg Ao max P.3 mmHg LV V1 VTI: 26.0 cm Ao mean P.5 mmHg DARLINE(I,D): 2.5 cm2 Ao V2 VTI: 48.4 cm DARLINE(V,D): 2.2 cm2 sev ratio: 0.54 DARLINE indexed to BSA (cm^2/m^2): 1.0 MV E max samuel: 86.9 cm/sec TR max samuel: 225.5 cm/sec MV A max samuel: 105.2 cm/sec TR max P.3 mmHg MV E/A: 0.83 PA V2 max: 96.1 cm/sec Med Peak E' Samuel: 7.2 cm/sec PA V2 mean: 68.4 cm/sec E/E' med: 12.1 PA mean P.1 mmHg Lat Peak E' Samuel: 7.8 cm/sec PA pr(Accel): 28.9 mmHg E/E' lat: 11.1 E/e' average: 11.6 MV dec time: 0.28 sec SV(LVOT): 120.2 ml Electronically signed by: Priya Holder M.D. on Reading Physician:07/12/2024 03:29 AM
== END ==
PROVIDERS: PCP Family Medicine; Referring Provider Family Medicine; Visit Provider Family Medicine
DX: I08.2 Rheumatic disorders of both aortic and tricuspid valves (principal); I77.89 Other specified disorders of arteries and arterioles
CPT/HCPCS: 93306

== ENCOUNTER → 2024-11-26 14:52 | Outpatient (CLI) | payer MEDICARE, OTHER, SELFPAY ==
[2024-11-26 15:36] LABS: Add Manual Diff / Slide Review NO; Hematocrit 37.4 % (41-53); Hemoglobin 12.6 g/dL (13.5-17.5); Lymphocytes Absolute Auto 1400 /uL (1100-4500); Mean Corpuscular HGB Conc 33.8 % (30-36); Mean Corpuscular Hemoglobin 31.5 PG (26-34); Mean Corpuscular Volume 93.2 fL (80-100); Platelet Count 159 X10^3/uL (150-400)
[2024-11-26 15:40] LABS: Hemoglobin A1C% w Est Avg Glu 5.2 % (4.0-6.0)
[2024-11-26 16:04] LABS: HEMOLYSIS < 15 (0-50); Iron 93 ug/dL (49-181)
[2024-11-26 16:05] LABS: Alanine Aminotransferase 68 IU/L (<50); Albumin 4.7 g/dL (3.5-5.0); Albumin Globulin Ratio 2.2 (1.0-2.8); Alkaline Phosphatase 88 U/L (38-126); Blood Urea Nitrogen 23 mg/dL (9-20); Calcium 9.8 mg/dL (8.4-10.2); Carbon Dioxide 27 mmol/L (22-32); Chloride 99 mmol/L (98-107); Estimated Glomerular Filt Rate > 60 mL/min (>60); Globulin 2.1 g/dL (1.7-4.1); Glucose 89 mg/dL (70-99); HEMOLYSIS < 15 (0-50); Potassium 4.3 mmol/L (3.4-5.1); Sodium 136 mmol/L (137-145); Total Protein 6.8 g/dL (6.3-8.2); Uric Acid 5.6 mg/dL (3.5-8.5)
[2024-11-26 16:16] LABS: Percent Iron Saturation 41 % (20-50); Total Iron Binding Capacity 229 ug/dL (261-462); Transferrin 191 mg/dL (206-381)
[2024-11-26 16:22] LABS: Vitamin D 25 Hydroxy (D3) 64.9 ng/mL (30.0-100.0)
[2024-11-26 16:34] LABS: TSH w/ Reflex to FT4 0.81 uIU/mL (0.47-4.68)
[2024-11-26 16:54] LABS: Vitamin B12 > 1000 pg/mL (239-931)
== END ==
PROVIDERS: PCP Family Medicine; Referring Provider Family Medicine; Visit Provider Family Medicine
DX: M43.26 Fusion of spine, lumbar region (principal); Z12.5 Encounter for screening for malignant neoplasm of prostate; I10 Essential (primary) hypertension; E55.9 Vitamin D deficiency, unspecified; E03.9 Hypothyroidism, unspecified; G62.9 Polyneuropathy, unspecified
CPT/HCPCS: 36415; 80053; 82306; 82607; 83036; 83540; 83550; 84443; 84550; 85025; G0103